=== PATIENT | male | born 1985 | race African-American/Black ===

== ENCOUNTER 2019-02-17 09:28 | Emergency (ER) | payer OTHER, SELFPAY ==
[~2019-02-17] VITALS: Ht 188 cm; Wt 96.8 kg
[2019-02-17 09:29] VITALS: BP 138/67
[2019-02-17] MEDS ORDERED: BACT800T5 PO (10:04)
== END 2019-02-17 10:08 | disposition home or self-care (01) ==
LOC: M ED 09:28
DX: K12.2 Cellulitis and abscess of mouth (principal); F17.200 Nicotine dependence, unspecified, uncomplicated; F12.10 Cannabis abuse, uncomplicated; Z88.0 Allergy status to penicillin

== ENCOUNTER 2019-04-30 02:23 | Emergency (ER) | payer SELFPAY ==
[~2019-04-30] VITALS: Ht 190.5 cm; Wt 95.7 kg
[~2019-04-30 02:23] MED LIST: BACT800T5 PO
[2019-04-30] MEDS ORDERED: METOCLOPRAMIDE INJ 10MG/2ML VIAL (J2765) IV ONE (03:00)
[2019-04-30] MEDS ORDERED: NS 1,000 ML IV ONE (03:00)
[2019-04-30 03:29] LABS: BASO % 0.2 % (0.0-1.0); EOS # 0.1 10^3/uL (0.0-0.5); EOS % 0.9 % (0.0-3.0); HEMATOCRIT 45.4 % (42.0-52.0); HEMOGLOBIN 14.8 g/dl (13.5-17.5); LYMPH # 1.7 10^3/uL (1.5-5.0); LYMPH % 11.5 % (24.0-44.0); MEAN CORPUSCULAR HEMOGLOBIN 31.2 pg (27.0-33.0); MEAN CORPUSCULAR HGB CONC 32.6 g/dl (32.0-36.5); MEAN CORPUSCULAR VOLUME 95.6 fl (80.0-96.0); MONO % 6.6 % (0.0-5.0); NEUTROPHILS # 11.9 10^3/uL (1.5-8.5); NEUTROPHILS % 80.4 % (36.0-66.0); PLATELET COUNT, AUTOMATED 216 10^3/uL (150-450); RED BLOOD COUNT 4.75 10^6/uL (4.30-6.10); WHITE BLOOD COUNT 14.8 10^3/uL (4.0-10.0)
[2019-04-30] MEDS ORDERED: NS 500 ML IV ONE (03:30)
[2019-04-30 03:54] LABS: ALBUMIN 3.7 GM/DL (3.2-5.2); ALT/SGPT 25 U/L (12-78); BILIRUBIN,DIRECT 0.2 MG/DL (0.0-0.2); BILIRUBIN,TOTAL 0.5 MG/DL (0.2-1.0); BLOOD UREA NITROGEN 21 MG/DL (7-18); CALCIUM LEVEL 8.8 MG/DL (8.5-10.1); CARBON DIOXIDE LEVEL 28 MEQ/L (21-32); CHLORIDE LEVEL 103 MEQ/L (98-107); CREATININE FOR GFR 1.13 MG/DL (0.70-1.30); GLOMERULAR FILTRATION RATE > 60.0 (>60); GLUCOSE, FASTING 95 MG/DL (70-100); LIPASE 67 U/L (73-393); POTASSIUM SERUM 3.7 MEQ/L (3.5-5.1); SODIUM LEVEL 139 MEQ/L (136-145); TOTAL PROTEIN 7.6 GM/DL (6.4-8.2)
[2019-04-30] MEDS ORDERED: ISOVUE-370 76% 100ML VIAL (Q9967) As Ordered ONE (04:19)
--- NOTE | 2019-04-30 05:45 | REPVR ---
PROCEDURE INFORMATION: Exam: CT Abdomen And Pelvis With Contrast Exam date and time: 04/30/2019 4:40 AM Age: 33 years old Clinical indication: Vomiting; Abdominal pain; Generalized; Additional info: Pain/emesis TECHNIQUE: Imaging protocol: Computed tomography of the abdomen and pelvis with intravenous contrast. Radiation optimization: All CT scans at this facility use at least one of these dose optimization techniques: automated exposure control; mA and/or kV adjustment per patient size (includes targeted exams where dose is matched to clinical indication); or iterative reconstruction. Contrast material: ISOVUE 370; Contrast volume: 100 ml; Contrast route: IV; COMPARISON: No relevant prior studies available. FINDINGS: Liver: Normal. No mass. Gallbladder and bile ducts: No calcified stones. No ductal dilation. Pancreas: Normal. No ductal dilation. Spleen: Normal. No splenomegaly. Adrenals: Normal. No mass. Kidneys and ureters: 1.2 cm right renal cyst. Unremarkable left kidney. No hydronephrosis. Stomach and bowel: Scattered colonic diverticulosis. Mild diffuse colon wall thickening. No pneumatosis. No evidence of obstruction. Appendix: Normal appendix. Intraperitoneal space: No free air. No significant fluid collection. Vasculature: No abdominal aortic aneurysm. Lymph nodes: Multiple prominent mesenteric lymph nodes. No pathologically enlarged lymph nodes. Bladder: Unremarkable. Reproductive: Unremarkable. Bones/joints: Unremarkable. No acute fracture. Soft tissues: Unremarkable. IMPRESSION: 1. Diffuse colon wall thickening consistent with colitis. 2. Reactive mesenteric lymph nodes. Electronically signed by: Jorge Alberto Keith On 04/30/2019 05:44:46 AM
[2019-04-30] MEDS ORDERED: REGL10TA6 PO (05:49)
[2019-04-30] MEDS ORDERED: MORPHINE 4 MG/ML 1ML VIAL/SYRINGE (J2270) IV ONE (06:00)
[2019-04-30 07:22] VITALS: BP 141/67
== END 2019-04-30 07:35 | disposition home or self-care (01) ==
LOC: M ED 02:23
DX: K52.9 Noninfective gastroenteritis and colitis, unspecified (principal); F17.200 Nicotine dependence, unspecified, uncomplicated; Z88.0 Allergy status to penicillin
CPT/HCPCS: 74177; 80048; 80076; 83690; 85025; 96361; 96374; 99284; J2270; J2765; Q9967

== ENCOUNTER 2019-05-10 18:28 | Inpatient (IN) | payer SELFPAY ==
[~2019-05-10] VITALS: Ht 190.5 cm; Wt 95.9 kg
[~2019-05-10 18:28] MED LIST changes: +REGL10TA6 PO
[2019-05-10 19:27] LABS: BASO % 0.3 % (0.0-1.0); EOS # 0.1 10^3/uL (0.0-0.5); EOS % 0.6 % (0.0-3.0); HEMATOCRIT 45.8 % (42.0-52.0); HEMOGLOBIN 14.9 g/dl (13.5-17.5); LYMPH # 1.9 10^3/uL (1.5-5.0); LYMPH % 12.5 % (24.0-44.0); MEAN CORPUSCULAR HEMOGLOBIN 31.4 pg (27.0-33.0); MEAN CORPUSCULAR HGB CONC 32.5 g/dl (32.0-36.5); MEAN CORPUSCULAR VOLUME 96.4 fl (80.0-96.0); MONO # 0.7 10^3/uL (0.0-0.8); MONO % 4.3 % (0.0-5.0); NEUTROPHILS # 12.6 10^3/uL (1.5-8.5); NEUTROPHILS % 81.9 % (36.0-66.0); PLATELET COUNT, AUTOMATED 240 10^3/uL (150-450); RED BLOOD COUNT 4.75 10^6/uL (4.30-6.10); WHITE BLOOD COUNT 15.4 10^3/uL (4.0-10.0)
[2019-05-10 19:59] LABS: ALBUMIN 3.7 GM/DL (3.2-5.2); BILIRUBIN,DIRECT 0.2 MG/DL (0.0-0.2); BILIRUBIN,TOTAL 0.9 MG/DL (0.2-1.0); TOTAL PROTEIN 7.7 GM/DL (6.4-8.2)
[2019-05-10] MEDS ORDERED: NS 1,000 ML IV ONE ×2 (21:15→22:30)
[2019-05-10] MEDS ORDERED: KETOROLAC 30 MG/ML VIAL (J1885) IV ONE (21:15)
[2019-05-10] MEDS ORDERED: ONDANSETRON 4MG/2ML VIAL (J2405) IV ONE (21:15)
[2019-05-10 22:48] LABS: AMORPHOUS SEDIMENT SMALL (NEGATIVE); APPEARANCE, URINE CLOUDY (CLEAR); BACTERIA, URINE AUTO NEGATIVE (NEGATIVE); BILIRUBIN, URINE AUTO NEGATIVE (NEGATIVE); BLOOD, URINE BLOOD NEGATIVE (NEGATIVE); COLOR, URINE YELLOW (YELLOW); GLUCOSE, URINE (UA) AUTO NEGATIVE (NEGATIVE); KETONE, URINE AUTO 1+ mg/dL (NEGATIVE); LEUKOCYTE ESTERASE, URINE AUTO NEGATIVE (NEGATIVE); MUCUS, URINE SMALL (NEGATIVE); NITRITE, URINE AUTO NEGATIVE (NEGATIVE); PROTEIN, URINE AUTO 1+ mg/dL (NEGATIVE); RBC, URINE AUTO 41 /HPF (0-3); SPECIFIC GRAVITY URINE AUTO 1.025 (1.002-1.035); SQUAMOUS EPITHELIAL CELL UR AU 0 /HPF (0-6); WBC, URINE AUTO 1 /HPF (0-3)
--- NOTE | 2019-05-10 23:58 | REPVR ---
PROCEDURE INFORMATION: Exam: CT Abdomen And Pelvis Without Contrast Exam date and time: 05/10/2019 11:06 PM Age: 33 years old Clinical indication: Abdominal pain; Flank; Left; Additional info: Lt flank pain, rbc in ua, wbc 15.4 TECHNIQUE: Imaging protocol: Computed tomography of the abdomen and pelvis without contrast. Radiation optimization: All CT scans at this facility use at least one of these dose optimization techniques: automated exposure control; mA and/or kV adjustment per patient size (includes targeted exams where dose is matched to clinical indication); or iterative reconstruction. COMPARISON: CT ABD/PEL W/IV CONTRAST ONLY 04/30/2019 4:38 AM FINDINGS: Lungs: Minimal left lower lobe linear atelectasis or scar. Liver: Normal. No mass. Gallbladder and bile ducts: Normal. No calcified stones. No ductal dilation. Pancreas: Normal. No ductal dilation. Spleen: Normal. No splenomegaly. Adrenals: Normal. No mass. Kidneys and ureters: Probable right renal cyst measuring 10 mm. Stomach and bowel: Borderline distention of the stomach with food material. There are a few colonic diverticula without diverticulitis. Much of the colon is collapsed. There is question of slight diffuse colonic wall thickening with some pericolonic induration. Appendix: A normal appendix is seen. Intraperitoneal space: Unremarkable. No free air. No significant fluid collection. Vasculature: Multiple phleboliths are noted in the pelvis which are similar to the prior study of 04/30/2019. Lymph nodes: Unremarkable. No enlarged lymph nodes. Bladder: Unremarkable as visualized. Reproductive: Unremarkable as visualized. Bones/joints: Unremarkable. No acute fracture. Soft tissues: Unremarkable. IMPRESSION: 1. There is borderline gastric distention with food material which is slightly increased from 04/30/2019 and may reflect recent ingestion. Gastric atony or relative outlet obstruction are not excluded. 2. Question of minimal nonspecific pancolitis which is similar to the prior study. 3. No renal or ureteral calculi are evident and there is no evidence of obstructive uropathy. Electronically signed by: Jose Martinez On 05/10/2019 23:57:45 PM
[2019-05-11] MEDS ORDERED: METOCLOPRAMIDE INJ 10MG/2ML VIAL (J2765) IV ONE (00:15)
[2019-05-11] MEDS ORDERED: ONDANSETRON 4MG/2ML VIAL (J2405) IV PRN (00:30)
[2019-05-11] MEDS ORDERED: ACETAMINOPHEN TAB 650MG DOSE (2X325MG) PO PRN (00:30)
[2019-05-11] MEDS ORDERED: KETOROLAC 30 MG/ML VIAL (J1885) IV PRN (00:30)
[2019-05-11] MEDS ORDERED: METO10TA2 PO (00:44)
[2019-05-11] MEDS ORDERED: DOCUSATE SODIUM 100 MG CAP PO ONE (01:00)
--- NOTE | 2019-05-11 01:43 | HPEPDOC ---
General Date of Admission May 11, 2019 at 00:28 Date of Service: May 11, 2019 Attending Physician: TIERNEY TREVINO MD Chief Complaint The patient is a 33-year-old male admitted with a reason for visit of Flank Pain. Source: Patient Exam Limitations: No limitations Timing/Duration: Day(s) (2d of left back pain) Severity: Severe Associated Symptoms: Nausea History of Present Illness 33 yo man with remote history of PSUD c/b CVA i/s/o crack cocaine with minimal RUE and slight right facial deficits, remote alcohol use, who was recently seen in the ED for abdominal pain and diarrhea on 04/30/[address] showed nonspecific pancolitis who now returns to the ED with new severe left flank pain of 2 days duration and was most severe today prompting his presentation, while reporting resolution of his recent diarrhea. He denies a history of prior renal calculi, recent dysuria, fever, chills, gricelda hematuria. In the ED, he arrived in moderate distress with hypertension to 197/89 that improved after some toradol. He was otherwise afebrile, HR 61, RR 18 and breathing comfortably on room air. He denied abdominal pain at this time, reported poor PO with nausea without emesis and 10/10 left back pain. While in the ED he was given 2L NS, toradol 30mg IV x 1, zofran 4mg IV x1 and reglan 10mg IV x1. Initial work up included a CT A/P that showed gastric distention, minimal pancolitis and no evidence of renal calculi, lipase and LFTs that were normal wi th a leukocytosis to 15.44, Hgb 14.9, Hct 45.8 and platelets of 240. He also had a UA that had 41 RBCs but otherwise without WBCs or bacteria. Given his classic acute left flank pain and blood found in sterile urine, it is likely that he may have passed a stone. Will admit to medicine for pain management and observation overnight. Home Medications Scheduled PRN Metoclopramide HCl (Metoclopramide HCl) 10 Mg Tablet, 10 MG PO Q6H PRN for NAUSEA, (Reported) Allergies Coded Allergies: Penicillins (Verified Allergy, Severe, FACIAL SWELLING, 02/17/19) Past Medical History Medical History Remote history of PSUD c/b CVA i/s/o crack cocaine with minimal RUE and slight right facial deficits, remote alcohol use, recent history of enterocolitis. Surgical History None Family History Significant Family History: No pertinent family hx Social History * Smoker: current smoker Alcohol: occationally (last consumption was in 12/2018 around his birthday. has a remote history of withdrawal) Drugs: denies Recent Travel/Sick Contacts: Denies: Recent travel, Recent sick contacts Psychosocial History: No pertinent psych hx A-FIB/CHADSVASC A-FIB History Current/History of A-Fib/PAF?: No Current PO Anticoag Therapy: No Age/Risk Factor Scoring CHADSVASC: CHADSVASC Response (Comments) Value Age Risk Factor Age < 65 years old 0 Gender Risk Factor Male 0 Hx of CHF No 0 Hx of HTN No 0 Hx of Stroke/TIA/or VTE No 0 Hx of Diabetes No 0 Hx of Vascular Disease No 0 Total 0 Treatment Treatment ordered: NONE Reason Anticoagulant not given: Not indicated/[id number] Review of Systems Constitutional: Denies: Chills, Fever, Night Sweats Eyes: Denies: Pain, Vision change ENT: Denies: Head Aches, Ear Pain, Dysphagia Skin: Denies: Rash, Lesions, Breakdown Pulmonary: Denies: Dyspnea, Cough Cardiovascular: Denies: Chest Pain, Palpitations, Orthopnea, Paroxysmal Noc. Dyspnea, Lt Headedness Gastrointestinal: Reports: Other Symptoms (left flank pain); Denies: Abdominal Pain, Diarrhea, Constipation, Melena, Hematochezia Genitourinary: Denies: Dysuria, Frequency, Incontinence, Hematuria (no noted gricelda hematuria), Retention Hematologic: Denies: Bruising, Bleeding Excessively Endocrine: Denies: Polydipsia, Polyphagia, Polyuria, Heat Intolerance, Cold Intolerance, Other Endocrine Sx Musculoskeletal: Reports: Back Pain (Left back pain) Neurological: Denies: Weakness, Numbness, Change in speech, Confusion Psych: Reports: Mood Normal; Denies: Depression, Memory Issues Physical Examination General Exam: Positive: Alert, No Acute Distress Eye Exam: Positive: PERRLA, Conjunctiva & lids normal, EOMI; Negative: Sclera icteric ENT Exam: Positive: Atraumatic, Mucous membr. moist/pink, Pharynx Normal Neck Exam: Positive: Supple; Negative: JVD, thyromegaly Chest Exam: Positive: Clear to auscultation, Normal air movement Heart Exam: Positive: Rate Normal, Regular Rhythm, Normal S1, Normal S2; Negative: Murmurs, Rubs Telemetry: Positive: No significant arrhythmia Abdomen Exam: Positive: Normal bowel sounds, Soft, Other (exquisite left flank pain, unremarkable abdominal examination); Negative: Tenderness, Hepatospenomegaly Extremity Exam: Positive: Normal pulses; Negative: Clubbing, Cyanosis, Edema Skin Exam: Positive: Nl turgor and temperature, Other skin issue (has multiple tattoos on upper chest and upper back); Negative: Breakdown, Lesion Neuro Exam: Positive: Normal Gait, Normal Speech, Strength at 5/5 X4 ext, Reflexes 2+; Negative: Cranial Nerves 3-12 NL (very slight R lid lag and facial droop on right side per his reported baseline. Also unable to full extent R arm.) Psych Exam: Positive: Mental status NL, Mood NL, Oriented x 3 Vital Signs Vital Signs Date Time Temp Pulse Resp B/P (MAP) Pulse Ox O2 Delivery O2 Flow Rate FiO2 05/11/19 00:42 98.4 65 15 164/78 (106) 98 Room Air Laboratory Data Labs 24H Laboratory Tests 2 05/10/19 19:06: Immature Granulocyte % (Auto) 0.4, Neutrophils (%) (Auto) 81.9H, Lymphocytes (%) (Auto) 12.5L, Monocytes (%) (Auto) 4.3, Eosinophils (%) (Auto) 0.6, Basophils (%) (Auto) 0.3, Neutrophils # (Auto) 12.6H, Lymphocytes # (Auto) 1.9, Monocytes # (Auto) 0.7, Eosinophils # (Auto) 0.1, Basophils # (Auto) 0.0, Nucleated Red Blood Cells % (auto) 0.0, Total Bilirubin 0.9, Direct Bilirubin 0.2, Aspartate Amino Transf (AST/SGOT) 20, Alanine Aminotransferase (ALT/SGPT) 25, Alkaline Phosphatase 69, Total Protein 7.7, Albumin 3.7, Albumin/Globulin Ratio 0.93L, Lipase 170 05/10/19 22:26: Urine Color YELLOW, Urine Appearance CLOUDYH, Urine pH 8.0, Urine Specific [place] 1.025, Urine Protein 1+H, Urine Glucose (Auto)(UA) NEGATIVE, Urine K etones (Auto) 1+H, Urine Blood NEGATIVE, Urine Nitrite NEGATIVE, Urine Bilirubin NEGATIVE, Urine Urobilinogen 2.0H, Urine Leukocyte Esterase (Auto) NEGATIVE, Urine WBC (Auto) 1, Urine RBC (Auto) 41H, Urine Hyaline Casts (Auto) 0, Urine Bacteria (Auto) NEGATIVE, Urine Squamous Epithelial Cells 0, Urine Amorphous Sediment (Auto) SMALLH, Urine Mucus (Auto) SMALL, Urine Sperm (Auto) CBC/BMP Laboratory Tests 05/10/19 19:06 Assessment/Plan 33 yo man with remote history of PSUD c/b CVA i/s/o crack cocaine with minimal RUE and slight right facial deficits, remote alcohol use, who was recently seen in the ED for abdominal pain and diarrhea on 04/30/[address] showed nonspecific pancolitis who now returned to the ED with new severe left flank pain of 2 days duration, while reporting resolution of his recent diarrhea with work up most notable for sterile hematuria c/f passed stone. L flank pain: likely passed left renal stone given acute severe pain, sterile hematuria and no stone seen on imaging, with stable to improved colitis and gastric distention. -Ketoralac 30IV Q6H PRN for severe pain -ondansetron 4mg IV Q6H PRN for nausea -recheck UA as it reported 41 RBCs and no blood? with cloudy urine -hemodynamically stable, afebrile, without evidence of an underlying infection at this time, will monitor -s/p 2L NS -stat BMP, did not assess renal function in the ED labs Hypertension: Appears to be related to pain as it improved with improvement in pain management -monitor for now -if persistent after pain is well managed, will need to be started on an antihypertensive agent Smoking: -reports recent cut back, declined nicotine patch Prior PSUD: -No alcohol his 12/2018 and no crack cocaine since he had the CVA DVT ppx: lovenox 40 QD Diet: regular Dispo: Medsurg obs Plan / VTE VTE Prophylaxis Ordered?: Yes TIERNEY TREVINO MD May 11, 2019 01:43
[2019-05-11 02:09] LABS: BLOOD UREA NITROGEN 12 MG/DL (7-18); CALCIUM LEVEL 8.3 MG/DL (8.5-10.1); CARBON DIOXIDE LEVEL 25 MEQ/L (21-32); CHLORIDE LEVEL 107 MEQ/L (98-107); CREATININE FOR GFR 0.96 MG/DL (0.70-1.30); GLOMERULAR FILTRATION RATE > 60.0 (>60); GLUCOSE, FASTING 142 MG/DL (70-100); POTASSIUM SERUM 4.3 MEQ/L (3.5-5.1); SODIUM LEVEL 138 MEQ/L (136-145)
--- NOTE | 2019-05-11 05:48 | ECGEPIP ---
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
[2019-05-11] MEDS ORDERED: ENOXAPARIN 40 MG/0.4 ML SYRINGE (J1650) SC SCH (09:00)
[2019-05-11] MEDS ORDERED: DOCUSATE SODIUM 100 MG CAP PO SCH (09:00)
[2019-05-11] MEDS ORDERED: CIPR-249 PO (11:57)
[2019-05-11] MEDS ORDERED: KETO10TAB PO (11:57)
[2019-05-11 13:23] VITALS: BP 146/73
--- NOTE | 2019-05-11 15:37 | DS.PDOC ---
Discharge Summary General Date of Admission May 11, 2019 at 00:28 Date of Discharge 05/11/19 Discharge Summary PROCEDURES PERFORMED DURING STAY: None. ADMITTING DIAGNOSES: 1. Left ankle pain, history of CVA. DISCHARGE DIAGNOSES: 1. Left flank pain, history of CVA, hypertension. COMPLICATIONS/CHIEF COMPLAINT: Flank Pain. HISTORY OF PRESENT ILLNESS: 33 yo man with remote history of PSUD c/b CVA i/s/o crack cocaine with minimal RUE and slight right facial deficits, remote alcohol use, who was recently seen in the ED for abdominal pain and diarrhea on 04/30/[address] showed nonspecific pancolitis who now returns to the ED with new severe left flank pain of 2 days duration and was most severe today prompting his presentation, while reporting resolution of his recent diarrhea. He denies a history of prior renal calculi, recent dysuria, fever, chills, gricelda hematuria. In the ED, he arrived in moderate distress with hypertension to 197/89 that improved after some toradol. He was otherwise afebrile, HR 61, RR 18 and breathing comfortably on room air. He denied abdominal pain at this time, repo rted poor PO with nausea without emesis and 10/10 left back pain. While in the ED he was given 2L NS, toradol 30mg IV x 1, zofran 4mg IV x1 and reglan 10mg IV x1. Initial work up included a CT A/P that showed gastric distention, minimal pancolitis and no evidence of renal calculi, lipase and LFTs that were normal with a leukocytosis to 15.44, Hgb 14.9, Hct 45.8 and platelets of 240. He also had a UA that had 41 RBCs but otherwise without WBCs or bacteria. Given his classic acute left flank pain and blood found in sterile urine, it is likely that he may have passed a stone. Will admit to medicine for pain management and observation overnight.. HOSPITAL COURSE: Patient was admitted to medical floor for observation. Once his pain was treated with Toradol. His blood pressure also subsided which was most likely secondary to pain. CAT scan of the abdomen and pelvis did not show any acute urinary obstruction or stone most likely pass the stone. Patient is clinically stable. His pain has subsided and he'll be discharged home on by mouth Toradol and by mouth ciprofloxacin. Patient has been advised to follow with his PCP in one week. Patient also was advised to come back to emergency room if the symptoms recur or get worse or he becomes febrile.. DISCHARGE MEDICATIONS: Please see below. ALLERGIES: Please see below. PHYSICAL EXAMINATION ON DISCHARGE: VITAL SIGNS: Please see below. GENERAL: Within normal limits HEENT: PERRLA, extra ocular muscles intact NECK: Supple CARDIOVASCULAR EXAMINATION: S1, S2, regular RESPIRATORY EXAMINATION: Clear to A&P ABDOMINAL EXAMINATION: , Soft, nontender, bowel sounds present EXTREMITIES: No clubbing, cyanosis, edema SKIN: Normal NEUROLOGICAL EXAMINATION: . No focal motor sensory deficit PSYCHIATRIC EXAMINATION: Normal LABORATORY DATA: Please see below. IMAGING: CT of abdomen and pelvis:IMPRESSION: 1. There is borderline gastric distention with food material which is slightly increased from 04/30/2019 and may reflect recent ingestion. Gastric atony or relative outlet obstruction are not excluded. 2. Question of minimal nonspecific pancolitis which is similar to the prior study. 3. No renal or ureteral calculi are evident and there is no evidence of obstructive uropathy. PROGNOSIS: Good ACTIVITY: As tolerated. DIET: As tolerated DISCHARGE PLAN: Follow with PCP in one week DISPOSITION: Home, Self-Care. DISCHARGE INSTRUCTIONS: 1. As per discharge instructions. ITEMS TO FOLLOWUP ON ON OUTPATIENT: 1. Follow with PCP in one week. DISCHARGE CONDITION: Stable. TIME SPENT ON DISCHARGE: 22 minutes. Vital Signs/I&Os Vital Signs Date Time Temp Pulse Resp B/P (MAP) Pulse Ox O2 Delivery O2 Flow Rate FiO2 05/11/19 13:23 98.2 75 20 146/73 (97) 100 Room Air I&O- Last 24 Hours up to 6 AM 05/11/19 06:00 Intake Total 2000 ml Balance 2000 ml Laboratory Data Labs 24H Laboratory Tests 2 05/10/19 19:06: Immature Granulocyte % (Auto) 0.4, Neutrophils (%) (Auto) 81.9H, Lymphocytes (%) (Auto) 12.5L, Monocytes (%) (Auto) 4.3, Eosinophils (%) (Auto) 0.6, Basophils (%) (Auto) 0.3, Neutrophils # (Auto) 12.6H, Lymphocytes # (Auto) 1.9, Monocytes # (Auto) 0.7, Eosinophils # (Auto) 0.1, Basophils # (Auto) 0.0, Nucleated Red Blood Cells % (auto) 0.0, Total Bilirubin 0.9, Direct Bilirubin 0.2, Aspartate Amino Transf (AST/SGOT) 20, Alanine Aminotransferase (ALT/SGPT) 25, Alkaline Phosphatase 69, Total Protein 7.7, Albumin 3.7, Albumin/Globulin Ratio 0.93L, Lipase 170 05/10/19 19:16: POC Glucose (Misc Panel) 85, POC Sodium (Misc Panel) 141, POC Potassium (Misc Panel) 4.3, POC Chloride (Misc Panel) 101, POC Total CO2 (Misc Panel) 30.0H, POC Blood Urea Nitrogen (Misc Panel 13, POC Ionized Calcium (Misc Panel) 4.7, POC Creatinine (Misc Panel) 0.9, POC Hematocrit (Misc Panel) 46.0 05/10/19 22:26: Urine Color YELLOW, Urine Appearance CLOUDYH, Urine pH 8.0, Urine Specific [place] 1.025, Urine Protein 1+H, Urine Glucose (Auto)(UA) NEGATIVE, Urine Ketones (Auto) 1+H, Urine Blood NEGATIVE, Urine Nitrite NEGATIVE, Urine Bilirubin NEGATIVE, Urine Urobilinogen 2.0H, Urine Leukocyte Esterase (Auto) NEGATIVE, Urine WBC (Auto) 1, Urine RBC (Auto) 41H, Urine Hyaline Casts (Auto) 0, Urine Bacteria (Auto) NEGATIVE, Urine Squamous Epithelial Cells 0, Urine Amorphous Sediment (Auto) SMALLH, Urine Mucus (Auto) SMALL, Urine Sperm (Auto) 05/11/19 01:32: Anion Gap 6L, Glomerular Filtration Rate > 60.0, Calcium Level 8.3L CBC/BMP Laboratory Tests 05/10/19 19:06 05/11/19 01:32 Discharge Medications Scheduled Ciprofloxacin HCl (Cipro) 500 Mg Tablet, 500 MG PO BID Scheduled PRN Ketorolac Tromethamine (Ketorolac Tromethamine) 10 Mg Tablet, 10 MG PO Q6HP PRN for pain Metoclopramide HCl (Metoclopramide HCl) 10 Mg Tablet, 10 MG PO Q6H PRN for NAUSEA, (Reported) Allergies Coded Allergies: Penicillins (Verified Allergy, Severe, FACIAL SWELLING, 02/17/19) LALIT PEREZ MD May 11, 2019 15:37
== END 2019-05-11 13:30 | disposition home or self-care (01) | DRG 251 ==
LOC: M ED 18:28 → M ED INP 05-11 00:28
PROVIDERS: ADMIT Internal Medicine; ATTEND Internal Medicine
DX: R10.9 Unspecified abdominal pain (principal); I69.351 Hemiplegia and hemiparesis following cerebral infarction affecting right dominant side; I10 Essential (primary) hypertension; F19.21 Other psychoactive substance dependence, in remission; F10.21 Alcohol dependence, in remission; F17.210 Nicotine dependence, cigarettes, uncomplicated; R31.9 Hematuria, unspecified

== ENCOUNTER 2019-05-26 07:50 | Emergency (ER) | payer MEDICAID, SELFPAY ==
[~2019-05-26] VITALS: Ht 188 cm; Wt 98.2 kg
[~2019-05-26 07:50] MED LIST changes: +CIPR-249 PO; +KETO10TAB PO; +METO10TA2 PO
[2019-05-26 09:10] LABS: BASO % 0.4 % (0.0-1.0); EOS # 0.2 10^3/uL (0.0-0.5); EOS % 3.2 % (0.0-3.0); HEMATOCRIT 41.2 % (42.0-52.0); HEMOGLOBIN 13.5 g/dl (13.5-17.5); LYMPH # 2.1 10^3/uL (1.5-5.0); LYMPH % 27.6 % (24.0-44.0); MEAN CORPUSCULAR HEMOGLOBIN 31.7 pg (27.0-33.0); MEAN CORPUSCULAR HGB CONC 32.8 g/dl (32.0-36.5); MEAN CORPUSCULAR VOLUME 96.7 fl (80.0-96.0); MONO # 0.6 10^3/uL (0.0-0.8); MONO % 7.8 % (0.0-5.0); NEUTROPHILS # 4.6 10^3/uL (1.5-8.5); NEUTROPHILS % 60.6 % (36.0-66.0); PLATELET COUNT, AUTOMATED 193 10^3/uL (150-450); RED BLOOD COUNT 4.26 10^6/uL (4.30-6.10); WHITE BLOOD COUNT 7.6 10^3/uL (4.0-10.0)
[2019-05-26] MEDS ORDERED: KETOROLAC 60 MG/2 ML VIAL (J1885) IM ONE (09:15)
[2019-05-26 09:30] LABS: ERYTHROCYTE SEDIMENTATION RATE 4 mm/hr (0-15)
[2019-05-26 10:01] LABS: AMPHETAMINES LEVEL URINE NEGATIVE (NEGATIVE); BARBITURATES URINE NEGATIVE (NEGATIVE); BENZODIAZEPINES URINE NEGATIVE (NEGATIVE); CANNABINOIDS URINE POSITIVE (NEGATIVE); COCAINE METABOLITE URINE NEGATIVE (NEGATIVE); METHADONE URINE NEGATIVE (NEGATIVE); OPIATES URINE NEGATIVE (NEGATIVE); PHENCYCLIDINE URINE NEGATIVE (NEGATIVE)
[2019-05-26 10:05] VITALS: BP 141/64
== END 2019-05-26 10:13 | disposition home or self-care (01) ==
LOC: M ED 07:50
DX: R31.9 Hematuria, unspecified (principal); M54.6 Pain in thoracic spine; R20.2 Paresthesia of skin; W18.40XA Slipping, tripping and stumbling without falling, unspecified, initial encounter; Y92.099 Unspecified place in other non-institutional residence as the place of occurrence of the external cause; Y93.9 Activity, unspecified; Y99.9 Unspecified external cause status; Z86.73 Personal history of transient ischemic attack (TIA), and cerebral infarction without residual deficits; F10.10 Alcohol abuse, uncomplicated; F11.10 Opioid abuse, uncomplicated; F12.10 Cannabis abuse, uncomplicated; F17.200 Nicotine dependence, unspecified, uncomplicated; Z88.0 Allergy status to penicillin
CPT/HCPCS: 80047; 80307; 81001; 85025; 85652; 86140; 96372; 99283; J1885

== ENCOUNTER → 2019-07-06 | Outpatient (REF) | payer OTHER | LOC: M SFHCPLAZ 12:19 | PROVIDERS: ATTEND Physician Assistant | DX: Z00.00 Encounter for general adult medical examination without abnormal findings (principal); Z13.220 Encounter for screening for lipoid disorders; Z13.29 Encounter for screening for other suspected endocrine disorder; R20.2 Paresthesia of skin; Z53.9 Procedure and treatment not carried out, unspecified reason ==

== ENCOUNTER 2019-08-24 10:06 | Emergency (ER) | payer OTHER ==
[~2019-08-24] VITALS: Ht 190.5 cm; Wt 100.0 kg
[2019-08-24] MEDS ORDERED: METH4PACK (10:15)
[2019-08-24] MEDS ORDERED: GABA-843 (10:15)
[2019-08-24] MEDS ORDERED: ONDANSETRON 4MG/2ML VIAL As Ordered ONE (10:34)
[2019-08-24] MEDS ORDERED: NS 1,000 ML IV ONE (10:45)
[2019-08-24] MEDS ORDERED: ONDANSETRON 4MG/2ML VIAL IV ONE (10:45)
[2019-08-24 11:00] LABS: BASO % 0.3 % (0.0-1.0); EOS # 0.2 10^3/uL (0.0-0.5); EOS % 1.1 % (0.0-3.0); HEMATOCRIT 46.5 % (42.0-52.0); HEMOGLOBIN 16.1 g/dl (13.5-17.5); LYMPH # 2.4 10^3/uL (1.5-5.0); LYMPH % 16.9 % (24.0-44.0); MEAN CORPUSCULAR HEMOGLOBIN 32.1 pg (27.0-33.0); MEAN CORPUSCULAR HGB CONC 34.6 g/dl (32.0-36.5); MEAN CORPUSCULAR VOLUME 92.6 fl (80.0-96.0); MONO # 0.6 10^3/uL (0.0-0.8); MONO % 4.3 % (0.0-5.0); NEUTROPHILS # 11.1 10^3/uL (1.5-8.5); PLATELET COUNT, AUTOMATED 253 10^3/uL (150-450); RED BLOOD COUNT 5.02 10^6/uL (4.30-6.10); WHITE BLOOD COUNT 14.4 10^3/uL (4.0-10.0)
[2019-08-24] MEDS ORDERED: METOCLOPRAMIDE INJ 10MG/2ML VIAL (J2765 PER 1) IV ONE (11:15)
[2019-08-24 11:30] LABS: ALBUMIN 3.8 GM/DL (3.2-5.2); ALT/SGPT 27 U/L (12-78); BILIRUBIN,TOTAL 0.6 MG/DL (0.2-1.0); BLOOD UREA NITROGEN 14 MG/DL (7-18); CALCIUM LEVEL 9.2 MG/DL (8.5-10.1); CARBON DIOXIDE LEVEL 27 MEQ/L (21-32); CHLORIDE LEVEL 108 MEQ/L (98-107); CK-MB VALUE MASS 1.6 NG/ML (<3.6); CPK CREATINE PHOSPHOKINASE 215 U/L (39-308); CREATININE FOR GFR 1.12 MG/DL (0.70-1.30); ETHYL ALCOHOL (ETHANOL) < 0.003 % (0.000-0.010); GLOMERULAR FILTRATION RATE > 60.0 (>60); GLUCOSE, FASTING 94 MG/DL (70-100); MB/CK RELATIVE INDEX 0.74 (< OR =4); NT-PRO BNP 27 PG/ML (<125); POTASSIUM SERUM 3.9 MEQ/L (3.5-5.1); SODIUM LEVEL 143 MEQ/L (136-145); TOTAL PROTEIN 8.1 GM/DL (6.4-8.2); TROPONIN I < 0.02 NG/ML (< 0.10)
--- NOTE | 2019-08-24 11:32 | REP ---
CT BRAIN WITHOUT CONTRAST: HISTORY: Drooping mouth. History of previous stroke. Comparison CT study November 01, 2011. 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 Bony calvarium is intact. Visualized paranasal sinuses are clear. No intraorbital abnormality is appreciated. On soft tissue window settings, there is a fairly prominent cavum vergae again noted. This is unchanged and a normal variant. Lpoez/white differentiation pattern is intact. There is no visible infarct, hemorrhage, mass, extra-axial fluid collection, or midline shift. IMPRESSION: Persistent cavum vergae again noted as a normal variant. Otherwise negative noncontrast head CT. Electronically Signed by Dami Allison MD 08/24/2019 11:55 A
--- NOTE | 2019-08-24 11:37 | REP ---
LEFT RIB SERIES: Four views of the left ribs performed. No fracture or bone lesion is seen. An accompanying view of the chest demonstrates no acute infiltrate. The lungs are clear. The heart and mediastinum are within normal limits. IMPRESSION: Negative left rib series. Electronically Signed by Danny Lopez MD 08/24/2019 12:55 P
[2019-08-24] MEDS ORDERED: ISOVUE-370 76% 100ML VIAL As Ordered ONE (11:42)
[2019-08-24] MEDS ORDERED: KETOROLAC 30 MG/ML 1ML VIAL IV ONE ×2 (11:45)
--- NOTE | 2019-08-24 12:39 | REP ---
CT ANGIOGRAM CHEST: TECHNIQUE: Axial contrast enhanced images from the thoracic inlet to the upper abdomen using 100 mL Isovue-370 intravenous contrast material with multiplanar reformations. There is no CT evidence of pulmonary embolism. There is no thoracic aortic aneurysm or dissection. The heart is normal in size. There is no mediastinal, terry or chest wall lymphadenopathy. There is no pleural or pericardial effusion. No infiltrate is seen in either lung. There is no pneumothorax. The visualized osseous structures are unremarkable. IMPRESSION: Negative CT angiogram of the chest. Electronically Signed by Danny Lopez MD 08/24/2019 12:57 P
--- NOTE | 2019-08-24 12:48 | REP ---
CT ABDOMEN AND PELVIS WITH IV CONTRAST: TECHNIQUE: Axial contrast enhanced images from the lung bases to the pubic symphysis using 100 mL Isovue-370 intravenous contrast material with multiplanar reformations. Liver, spleen, adrenals and pancreas are unremarkable. There is a cyst of the right kidney measuring 1.2 cm in diameter. There is no hydronephrosis bilaterally. There is no abdominal aortic aneurysm. There is no adenopathy. There is no free air or free fluid. I seen on bowel wall thickening. The appendix is normal. No pelvic mass is seen. Urinary bladder is mildly distended and grossly unremarkable. IMPRESSION: No acute abnormality is detected. Electronically Signed by Danny Lopez MD 08/24/2019 12:57 P
[2019-08-24 13:01] LABS: AMPHETAMINES LEVEL URINE NEGATIVE (NEGATIVE); BARBITURATES URINE NEGATIVE (NEGATIVE); BENZODIAZEPINES URINE NEGATIVE (NEGATIVE); CANNABINOIDS URINE POSITIVE (NEGATIVE); COCAINE METABOLITE URINE NEGATIVE (NEGATIVE); METHADONE URINE NEGATIVE (NEGATIVE); OPIATES URINE NEGATIVE (NEGATIVE); PHENCYCLIDINE URINE NEGATIVE (NEGATIVE)
[2019-08-24] MEDS ORDERED: HALOPERIDOL 5MG/ML VIAL (J1630 PER 1) IV ONE (15:15)
[2019-08-24 15:24] LABS: CK-MB VALUE MASS 1.8 NG/ML (<3.6); CPK CREATINE PHOSPHOKINASE 206 U/L (39-308); MB/CK RELATIVE INDEX 0.87 (< OR =4); TROPONIN I < 0.02 NG/ML (< 0.10)
[2019-08-24 15:30] VITALS: BP 151/81
--- NOTE | 2019-08-24 22:06 | ECGEPIP ---
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
== END 2019-08-24 15:58 | disposition home or self-care (01) ==
LOC: M ED 10:06
DX: R11.15 Cyclical vomiting syndrome unrelated to migraine (principal); R10.9 Unspecified abdominal pain; R00.0 Tachycardia, unspecified; M54.9 Dorsalgia, unspecified; I69.392 Facial weakness following cerebral infarction; F17.210 Nicotine dependence, cigarettes, uncomplicated; Z88.0 Allergy status to penicillin; Z79.899 Other long term (current) drug therapy
CPT/HCPCS: 70450; 71101; 71275; 74177; 80053; 80307; 81001; 82550; 82553; 83605; 83880; 85025; 93005; 93041; 94760; 96374; 96375; 99285; G0480; J1630; J1885; J2405; J2765; Q9967

== ENCOUNTER → 2019-09-24 | Outpatient (REF) | payer OTHER ==
[~2019-09-24] MED LIST changes: +GABA-843; +METH4PACK
[2019-09-24 15:57] LABS: CHLAMYDIA DNA AMPLIFICATION NEGATIVE (NEGATIVE); GC DNA AMPLIFICATION POSITIVE (NEGATIVE)
== END ==
LOC: M LAB REF 14:14
PROVIDERS: ATTEND Physician Assistant Medical
DX: Z11.3 Encounter for screening for infections with a predominantly sexual mode of transmission (principal)

== ENCOUNTER → 2020-11-05 | Outpatient (CLI) | payer OTHER ==
[~2020-11-05] MED LIST changes: +GABA-282; -GABA-843
[2020-11-05 14:23] LABS: ALBUMIN 3.7 GM/DL (3.2-5.2); ALT/SGPT 53 U/L (12-78); BILIRUBIN,TOTAL 0.7 MG/DL (0.2-1.0); BLOOD UREA NITROGEN 20 MG/DL (7-18); CALCIUM LEVEL 9.3 MG/DL (8.5-10.1); CARBON DIOXIDE LEVEL 29 MEQ/L (21-32); CHLORIDE LEVEL 108 MEQ/L (98-107); CHOLESTEROL LEVEL 161 MG/DL (<200); CREATININE FOR GFR 0.97 MG/DL (0.70-1.30); FREE T4 1.09 NG/DL (0.76-1.46); GLOMERULAR FILTRATION RATE > 60.0 (>60); GLUCOSE, FASTING 95 MG/DL (70-100); HDL CHOLESTEROL 50 MG/DL (>40); LDL CHOLESTEROL 98 MG/DL (<100); NON-HDL-C 111 MG/DL; POTASSIUM SERUM 4.3 MEQ/L (3.5-5.1); SODIUM LEVEL 141 MEQ/L (136-145); THYROID STIMULATING HORMONE 0.593 uIU/ML (0.358-3.740); TOTAL 25(OH) VITAMIN D 18.5 NG/ML (30.0-100.0); TOTAL PROTEIN 7.7 GM/DL (6.4-8.2); TRIGLYCERIDES LEVEL 63 MG/DL (<150)
== END ==
LOC: M PLALAB 10:49
PROVIDERS: ATTEND Physician Assistant
DX: Z00.00 Encounter for general adult medical examination without abnormal findings (principal); Z13.1 Encounter for screening for diabetes mellitus; Z13.220 Encounter for screening for lipoid disorders

== ENCOUNTER 2021-02-09 15:28 | Emergency (ER) | payer OTHER ==
[~2021-02-09] VITALS: Ht 190.5 cm; Wt 121.5 kg
--- OUTSIDE RECORDS SUMMARY | 2021-02-09 15:34 | CCD ---
Author Author [facility] Organization [facility] Address Unknown Phone Unavailable Care Team Providers Care Technical Specialist Name Role Phone Carisa Francisco Unavailable PROBLEMS Type Condition ICD9-CM Code [id number] Code Onset Dates Condition S tatus W/U Status Risk SNOMED Code Notes Problem Acute midline low back pain with left-sided sciatica M54.42 Active confirmed 752715113 Problem Vitamin D deficiency E55.9 Active confirmed 85296533 Problem Paresthesia of skin R20.2 Active confirmed 25341382 Problem Nicotine dependence, cigarettes, uncomplicated F17 .210 Active confirmed 48751936 ALLERGIES Allergen (clinical drug ingredient) Drug/Non Drug Allergy do cumented on EMR Reaction Allergy Type Onset Date Status penicillin V Penicillin Unknown Drug Allergy Active ENCOUNTERS from 1985 to 2020-12-30 Encounter Location Date Provider Diagnosis [address] [phone] [place] [address] Dec, Carisa Francisco IMMUNIZATIONS No Information SOCIAL HISTORY Tobacco Use: Social History Observation Description Date Details (start date - stop date) Former Smoker Sex Assigned At : Social History Observation Description Sex Assigned At Unknown Education: Question Answer Notes Level of Education: College Audit Question Answer Notes Total Score: 0 Interpretation: Alcohol Education Language: Question Answer Notes Languages spoken: Gabonese Advent: Question Answer Notes Advent No confucianism beliefs that would impact health care. Sexual Hx: Question Answer Notes Had sex in the last 12 months (vaginal, oral, or anal)? Yes Have you ever had an STD? No with Women only Use protection? No Drug and Alcohol Question Answer Notes Total Score: 0 Interpretation: No problems reported Alcohol Screening: Question Answer Notes Did you have a drink containing alcohol in the past year? Ye s Points 2 Interpretation Negative How often did you have six or more drinks on one occas ion in the past year? Never (0 points) How many drinks did you have on a typica l day when you were drinking in the past year? 3 or 4 (1 point) How often did you have a drink containing alcohol in t he past year? Monthly or less (1 point) Tobacco Use: Question Answer Notes Are you a: former smoker Quit February 29, 2020 REASON FOR REFERRAL No Information VITAL SIGNS No information MEDICATIONS Medication SIG (Take, Route, Frequency, Duration) Notes Start Da te End Date Status Clobetasol Propionate 0.05 % 1 application Externally Once a day for 14 day(s) Dec, Active Chantix Starting Month Dylon 0.5 MG X 11 & 1 MG X 42 as directed Orally as directed for 30 Days Jun, Not-Taking Chantix Continuing Month Dylon 1 MG as directed Orally as directed for 30 Days Jun, Not-Taking Clobetasol Propionate 0.05 % 1 application Externally Once a day for 14 day(s) Dec, Active Doxycycline Hyclate 100 MG 1 tablet Orally Twice a day for 5 day (s) Dec, Active Ergocalciferol 1.25 MG (67621 UT) 1 capsule Orally weekly for 30 day(s) Dec, Active tiZANidine HCl 2 MG 1-2 tablets as needed Orally Three times a day for 30 Days Dec, Active PROCEDURES No Information RESULTS No Results REASON FOR VISIT PA clobetasol prop 0.05% shampoo MEDICAL (GENERAL) HISTORY Type Description Date Medical History CVA in 2004, cocaine induced Surgical History No Surgical history information Hospitalization History stroke 2004 Hospitalization History low back pain. kidney stones? Goals Section No Information Health Concerns No Information MEDICAL EQUIPMENT No Information MENTAL STATUS No Information FUNCTIONAL STATUS No Information ASSESSMENTS No Information PLAN OF TREATMENT Medication Medication Name Sig Start Date Stop Date Clobetasol Propionate 0.05 % 1 application Externally Once a day for 14 day(s) Dec, Doxycycline Hyclate 100 MG 1 tablet Orally Twice a day for 5 day(s) Dec, Ergocalciferol 1.25 MG (48936 UT) 1 capsule Orally weekly fo r 30 day(s) Dec, Clobetasol Propionate 0.05 % 1 application Externally Once a day for 14 day(s) Dec, tiZANidine HCl 2 MG 1-2 tablets as needed Orally Three times a day for 30 Days Dec, Insurance Providers Payer Name Payer Address Payer Phone Insured Name Patient Relati onship to Insured Coverage Start Date Coverage End Date [facility] CORPORATE CLAIMS DEPT [address] [facility] [phone] [place] self
--- OUTSIDE RECORDS SUMMARY | 2021-02-09 15:34 | CCD ---
Author Author [facility] Organization [facility] Address Unknown Phone Unavailable Care Team Providers Care Physical Therapist Name Role Phone Carisa Francisco Unavailable PROBLEMS Type Condition ICD9-CM Code [id number] Code Onset Dates Condition S tatus W/U Status Risk SNOMED Code Notes Problem Acute midline low back pain with left-sided sciatica M54.42 Active confirmed [id number] Problem Vitamin D deficiency E55.9 Active confirmed 19538249 Problem Paresthesia of skin R20.2 Active confirmed 40569656 Problem Nicotine dependence, cigarettes, uncomplicated F17 .210 Active confirmed 94126612 ALLERGIES Allergen (clinical drug ingredient) Drug/Non Drug Allergy do cumented on EMR Reaction Allergy Type Onset Date Status penicillin V Penicillin Unknown Drug Allergy Active ENCOUNTERS from 1985 to 2021-01-11 Encounter Location Date Provider Diagnosis [address] [phone] [place] [address] Dec, Carisa Francisco Vitamin D deficiency E55.9 ; Folliculitis barbae L73.8 and Acute midline low back pain with left-sided sciatica M54.42 IMMUNIZATIONS No Information SOCIAL HISTORY Tobacco Use: Social History Observation Description Date Details (start date - stop date) Former Smoker Sex Assigned At : Social History Observation Description Sex Assigned At Unknown Education: Question Answer Notes Level of Education: College Audit Question Answer Notes Total Score: 0 Interpretation: Alcohol Education Language: Question Answer Notes Languages spoken: Malay Quaker: Question Answer Notes Quaker No episcopalian beliefs that would impact health care. Sexual [...] Quit February 29, 2020 REASON FOR REFERRAL from 1985 to 2021-01-11 Reason 34y/o male with midline low back pain with numbness/tingling down right leg, had MRI showed bulging disc Diagnosis 1 Acute midline low back pain with left-sided sciatica (M54.42) Referral Organization [facility] [place] Referring Provider First Name Carisa Referring Provider Last Name Nolan Referring Provider Specialty Family Medicine Referred Provider [facility] ([place]) Referred Provider Specialty Physical Therapist Referral Priority Routine General Notes PolkSilvia 12/19/2020 11:53:05 AM > referral faxed VITAL SIGNS Weight 291.8 lbs Dec, Weight-kg 132.36 kg Dec, Height 75 in Dec, BMI 36.47 kg/m2 Dec, Heart Rate 96 /min Dec, Respiratory Rate 18 /min Dec, Temperature 97.5 degrees Fahrenheit Dec, Oximetry 96 Dec, Blood pressure systolic 116 mm Hg Dec, Blood pressure diastolic 72 mm Hg Dec, MEDICATIONS Medication SIG (Take, Route, Frequency, Duration) [...] day (s) Dec, Active Ergocalciferol 1.25 MG (37099 UT) 1 capsule Orally weekly for 30 day(s) Dec, Active tiZANidine HCl 2 MG 1-2 tablets as needed Orally Three times a day for 30 Days Dec, Active PROCEDURES No Information RESULTS No Results REASON FOR VISIT follow up MEDICAL (GENERAL) HISTORY Type Description Date Medical History CVA in 2004, cocaine induced Surgical History No Surgical history information Hospitalization History stroke 2004 Hospitalization History low back pain. kidney stones? Goals Section No Information Health Concerns No Information MEDICAL EQUIPMENT No Information MENTAL STATUS No Information FUNCTIONAL STATUS No Information ASSESSMENTS Encounter Date Diagnosis Assessment Notes Treatment Notes Treatm ent Clinical Notes Dec, Vitamin D deficiency (ICD-10 - E55.9) weekly vitamin D supplements sent for patient to start Dec, Folliculitis barbae (ICD-10 - L73.8) oral antibiotics and a steroid shampoo sent for patient to use if his symptoms persist will consider a referral to a blocker heated metal forms Dec, Acute midline low back pain with left-sided sciatica (ICD-10 - M54.42) tizanidine sent for patient to start and a referral was placed for patient to start physical therapy again Dec, Other Total time spen t with the patient on the day of the encounter: 20 minutes PLAN OF TREATMENT Medication Medication Name Sig Start Date Stop Date Clobetasol Propionate 0.05 % 1 application Externally Once a day for 14 day(s) Dec, Doxycycline Hyclate 100 MG 1 tablet Orally Twice a day for 5 day(s) Dec, Ergocalciferol 1.25 MG (00024 UT) 1 capsule Orally weekly fo r 30 day(s) Dec, Clobetasol Propionate 0.05 % 1 application Externally Once a day for 14 day(s) Dec, tiZANidine HCl 2 MG 1-2 tablets as needed Orally Three times a day for 30 Days Dec, Treatment Notes Assessment Notes Clinical Notes Vitamin D deficiency weekly vitamin D sandoval pplements sent for patient to start Folliculitis barbae oral antibiotics and a steroid shampoo sent for patient to useif his symptoms persist will consider a referral to a blocker heated metal forms Acute midline low back pain with left-sided sciatica tizanidine sent for patient to start and a referral was placed for patient to start physical therapy again Referrals Referral Date Details 34y/o male with midline low back pain with numbness/tingling down right leg, had MRI showed bulging disc, Physical [facility] ([place] Next Appt Details 1 Year, sooner if needed Reason: Insurance Providers Payer Name Payer Address Payer Phone Insured Name Patient Relati onship to Insured Coverage Start Date Coverage End Date [facility] CORPORATE CLAIMS DEPT [address] [facility] [phone] [place] self
--- OUTSIDE RECORDS SUMMARY | 2021-02-09 15:34 | CCD ---
Author Author [facility] Organization [facility] Address Unknown Phone Unavailable Care Team Providers Care Funeral Service Licensee Name Role Phone Carisa Francisco Unavailable PROBLEMS Type Condition ICD9-CM Code [id number] Code Onset Dates Condition S tatus W/U Status Risk SNOMED Code Notes Problem Paresthesia of skin R20.2 Active confirmed 31263641 Problem Nicotine dependence, cigarettes, uncomplicated F17 .210 Active confirmed 17535542 Problem Acute midline low back pain with left-sided sciatica M54.42 Active confirmed 391656639 ALLERGIES No Known Allergies ENCOUNTERS from 1985 to 2020-12-01 Encounter Location Date Provider Diagnosis [address] [phone] [place] [address] Oct, Carisa Francisco Coccygeal pain M53.3 ; Adult general medical examination Z00.00 ; Dry skin L85.3 ; Screening for lipid disorders Z13.220 ; Screening for thyroid disorder Z13.29 and Screening for diabetes mellitus Z13.1 IMMUNIZATIONS No Information SOCIAL HISTORY Tobacco Use: Social History Observation Description Date Details (start date - stop date) Former Smoker Sex Assigned At : Social History Observation Description Sex Assigned At Unknown Education: Question Answer Notes Level of Education: College Audit Question Answer Notes Total Score: 0 Interpretation: Alcohol Education Language: Question Answer Notes Languages spoken: Tristanian Mormonism: Question Answer Notes Mormonism No denominational beliefs that would impact health care. Sexual [...] REASON FOR REFERRAL No Information VITAL SIGNS Weight 309 lbs Oct, Height 75 in Oct, BMI 38.62 kg/m2 Oct, Heart Rate 82 /min Oct, Respiratory Rate 18 /min Oct, Temperature 97.2 degrees Fahrenheit Oct, Oximetry 96 Oct, Blood pressure systolic 118 mm Hg Oct, Blood pressure diastolic 70 mm Hg Oct, MEDICATIONS Medication SIG (Take, Route, Frequency, Duration) Notes Start Da te End Date Status Chantix Starting Month Dylon 0.5 MG X 11 & 1 MG X 42 as directed Orally as directed for 30 Days Jun, Not-Taking Chantix Continuing Month Dylon 1 MG as directed Orally as directed for 30 Days Jun, Not-Taking PROCEDURES No Information RESULTS No Results REASON [...] Notes Treatment Notes Treatm ent Clinical Notes Oct, Coccygeal pain (ICD-10 - M53.3) patient to start alternating ice/heat and taking ibuprofen around the clock for a week Oct, Adult general medical examination (ICD-10 - Z00. 00) age appropriate anticipatory guidance given, per USPSTF recommendations; immunizations up to date. discussed plans for implementing improvement in identified areas Oct, Dry skin (ICD-10 - L85.3) patient to use a cream moisturizer, not lotion, like Cere Ve, Cetaphil, or Vanicream on the area Oct, Screening for lipid disorders (ICD-10 - Z13.220) Oct, Screening for thyroid disorder (ICD-10 - Z13.29) Oct, Screening for diabetes mellitus (ICD-10 - Z13.1) Oct, Other Total time spen t with the patient on the day of the encounter: 30 minutes PLAN OF TREATMENT Treatment Notes Assessment Notes Clinical Notes Coccygeal pain patient to start alt ernating ice/heat and taking ibuprofen around the clock for a week Adult general medical examination age ap propriate anticipatory guidance given, per USPSTF recommendations; immunizations up to date. discussed plans for implementing improvement in identified areas Dry skin patient to use a cre am moisturizer, not lotion, like Cere Ve, Cetaphil, or Vanicream on the area Future Test Test Name Order Date Comprehensive Metabolic Profile (CMP) [id number] LIPID PANEL (CARDIAC RISK) [id number] FREE T4 & TSH PANEL [id number] HEMOGLOBIN A1c [id number] VITAMIN D 25-HYDROXY [id number] Next Appt Details 4 Weeks Reason: Insurance Providers Payer Name Payer Address Payer Phone Insured Name Patient Relati onship to Insured Coverage Start Date Coverage End Date [employer] CORPORATE CLAIMS DEPT [address] [place] [phone] [place] self
--- OUTSIDE RECORDS SUMMARY | 2021-02-09 15:34 | CCD | Continuity of Care Document ---
Author Author [facility] Organization Unknown Address [address] [place] [address], [address] [place] [address] Phone [phone] Care Team Providers Care Percussion Tuner Name Role Phone Nolan Carisa ZACK AUTM [phone] Problems Active Problems Provider Date Bunion Terrell Talbot DPM Onset: 07/10/2019 Hammer toe Terrell Talbot DPM Onset: 07/10/2019 Pronation Terrell Talbot DPM Onset: 07/10/2019 Corns and callosities Terrell Talbot DPM Onset: 07/10/2019 Plantar fascial fibromatosis Terrell Talbot DPM Onset: 07/2019 Social History Type Date Description Comments Sex Unknown ETOH Use Denies alcohol use Tobacco Use Start: Unknown Patient is a current smoker, smo kes every day 1/2 ppd smoker since 2009 Allergies, Adverse Reactions, Alerts Active Allergies Reaction Severity Comments Date Penicillin V throat swelling 07/04/2019 Medications Active Medications SIG Qnty Indications Ordering Provide r Date Ammonium Lactate 12% Cream apply to feet daily 140gm Terrell Talbot DPM 07/04/2019 Ceftriaxone Sodium 250mg Solution Rec Marko QUICK,[place] Gabapentin 300mg Capsules Ali, Katlin M.DMatt Meloxicam 7.5mg Tablets Ali, Katlin M.D. Tizanidine HCL 4mg Tablets Ali, Katlin M.D. Azithromycin 500mg Tablets Marko RPA,[place] Methylprednisolone 4mg TBPK Unknown Immunizations Description No Information Available Vital Signs Date Vital Result Comment 11/05/2020 9:31am Height 75 inches 6'3" Weight 309.00 lb BP Systolic 120 mmHg BP Diastolic 80 mmHg Heart Rate 77 /min BMI (Body Mass Index) 38.6 kg/m2 07/04/2019 3:14pm Height 75 inches 6'3" Weight 220.00 lb BP Systolic 110 mmHg BP Diastolic 58 mmHg Heart Rate 75 /min BMI (Body Mass Index) 27.5 kg/m2 Results Description No Information Available Procedures Date Code Description Status 11/05/2020 92651 Office/Outpatient Established Lo w MDM 20-29 Min Completed Medical Devices Description No Information Available Encounters Type Date Location Provider Dx Diagnosis Office Visit 11/05/2020 9:30a [place] [facility] Terrell Talbot DPM M21.619 Bunion of unspecified foot M20.40 Other hammer toe(s) (acquire d), unspecified foot L84 Corns and callosities Assessments Date Code Description Provider 11/05/2020 M21.619 Bunion of unspecified foot Pancho Talbot DPM 11/05/2020 M20.40 Other hammer toe(s) (acquired), unspecified foot Terrell Talbot DPM 11/05/2020 L84 Corns and callosities Terrell Talbot DPM Plan of Treatment No Information Available Functional Status Description No Information Available Mental Status Description No Information Available Referrals Refer to Reason for Referral Status Appt Date Terrell Talbot DPM Created [address] [address] [phone]
--- OUTSIDE RECORDS SUMMARY | 2021-02-09 15:35 | CCD ---
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 Name Role Phone Claudia DONNELLY DPM Unavailable Unavailable Claudia DONNELLY DPM Unavailable Unavailable Claudia DONNELLY DPM Unavailable Unavailable Claudia DONNELLY DPM Unavailable Unavailable Claudia DONNELLY DPM Unavailable Unavailable Claudia DONNELLY DPM Unavailable Unavailable Claudia DONNELLY DPM Unavailable Unavailable Claudia DONNELLY DPM Unavailable Unavailable Claudia DONNELLY DPM Unavailable Unavailable Claudia DONNELLY DPM Unavailable Unavailable Claudia DONNELLY DPM Unavailable Unavailable Claudia DONNELLY DPM Unavailable Unavailable Claudia DONNELLY DPM Unavailable Unavailable Claudia DONNELLY DPM Unavailable Unavailable Claudia DONNELLY DPM Unavailable Unavailable Claudia DONNELLY DPM Unavailable Unavailable Claudia DONNELLY DPM Unavailable Unavailable Claudia DONNELLY DPM Unavailable Unavailable Claudia DONNELLY DPM Unavailable Unavailable Claudia DONNELLY DPM Unavailable Unavailable Claudia DONNELLY DPM Unavailable Unavailable Claudia DONNELLY DPM Unavailable Unavailable Claudia DONNELLY DPM Unavailable Unavailable Claudia DONNELLY DPM Unavailable Unavailable Claudia DONNELLY DPM Unavailable Unavailable Claudia DONNELLY DPM Unavailable Unavailable Claudia DONNELLY DPM Unavailable Unavailable Claudia DONNELLY DPM Unavailable Unavailable Claudia DONNELLY DPM Unavailable Unavailable EVA, R GM DPM Unavailable Unavailable MAJEVA, R GM DPM Unavailable Unavailable Re-disclosure Warning The records that you are about to access may contain information from federally-assisted alcohol or drug abuse programs. If such information is present, then the following federally mandated warning applies: This information has been disclosed to you from records protected by federal confidentiality rules (42 CFR part 2). The federal rules prohibit you from making any further disclosure of this information unless further disclosure is expressly permitted by the written consent of the person to whom it pertains or as otherwise permitted by 42 CFR part 2. A general authorization for the release of medical or other information is NOT sufficient for this purpose. The Federal rules restrict any use of the information to criminally investigate or prosecute any alcohol or drug abuse patient.The records that you are about to access may contain highly sensitive health information, the redisclosure of which is protected by Article 27-F of the [facility] Public Health law. If you continue you may have access to information: Regarding HIV / AIDS; Provided by facilities licensed or operated by the [facility] Office of Mental Health; or Provided by the [facility] Office for People With Developmental Disabilities. If such information is present, then the following [facility] mandated warning applies: This information has been disclosed to you from confidential records which are protected by state law. State law prohibits you from making any further disclosure of this information without the specific written consent of the person to whom it pertains, or as otherwise permitted by law. Any unauthorized further disclosure in violation of state law may result in a fine or mcc sentence or both. A general authorization for the release of medical or other information is NOT sufficient authorization for further disc losure. Encounters Encounter Providers Location Date Indications Data Source(s ) Out[place] [address] [facility] [address] 12/19/2020 12:00:00 AM EDT eCW1 ([facility]) Unknown [address] [facility] [address] 12/19/2020 12:00:00 AM EDT eCW1 ([facility]) Outpatient Attender: GM DONNELLY DPM [place] Office 10/18 09:30:00 AM EDT MED[facility] ([facility] [address] [facility] [address] 10/31/2020 12:00:00 AM EDT eCW1 ([facility]) Outpatient Attender: GM DONNELLY [facility] Office 01/18 08:15:00 AM EDT [facility] ([facility] Unknown [address] [facility] [address] 01/29/2020 12:00:00 AM EDT eCW1 ([facility]) Outpatient Attender: GM DONNELLY [facility] Office 12/18 11:15:00 AM EDT MEDENT ([facility] Immunizations Vaccine Date Status Description Data Source(s) COVID-[address] [facility] 08/01/2020 12:00:00 AM EDT completed NYSIIS Vaccine Series Complete: YESThis Data wa s Submitted to [facility] Via [employer]. Medications Medication Brand Name Start Date Product Form Dose Route Admi nistrative Instructions Pharmacy Instructions Status Indications Reaction Description Data Source(s) Clobetasol Propionate 0.5 MG/ML Topical Solution Clobe tasol Propionate 0.05 % Clobetasol Propionate 0.05 % 12/30/2020 12:00:00 AM EDT 1.0 {applicat ion} active Clobetasol Propionate 0.05 % eCW1 ([facility]) Clobetasol Propionate 0.5 MG/ML Topical Solution Clobe tasol Propionate 0.05 % Clobetasol Propionate 0.05 % 12/30/2020 12:00:00 AM EDT 1.0 {applicat ion} active Clobetasol Propionate 0.05 % eCW1 ([facility]) Clobetasol Propionate 0.5 MG/ML Medicated Shampoo Clob etasol Propionate 0.05 % Clobetasol Propionate 0.05 % 12/19/2020 12:00:00 AM EDT 1.0 {applicat ion} active Clobetasol Propionate 0.05 % eCW1 ([facility]) tizanidine 2 MG Oral Tablet tiZANidine HCl 2 MG tiZANidine H Cl 2 MG 12/19/2020 12:00:00 AM EDT active tiZANidi ne HCl 2 MG eCW1 ([facility]) doxycycline hyclate 100 MG Oral Tablet Doxycycline Hyc late 100 MG Doxycycline Hyclate 100 MG 12/19/2020 12:00:00 AM EDT 1.0 {tablet} active Doxycycline Hyclate 100 MG eCW1 ([facility]) Ergocalciferol 46275 UNT Oral Capsule Ergocalciferol 1 .25 MG (47956 UT) Ergocalciferol 1.25 MG (70655 UT) 12/19/2020 12:00:00 AM EDT 1.0 {c apsule} active Ergocalciferol 1.25 MG (5 0000 UT) eCW1 ([facility]) Clobetasol Propionate 0.5 MG/ML Medicated Shampoo Clob etasol Propionate 0.05 % Clobetasol Propionate 0.05 % 12/19/2020 12:00:00 AM EDT 1.0 {applicat ion} active Clobetasol Propionate 0.05 % eCW1 ([facility]) tizanidine 2 MG Oral Tablet tiZANidine HCl 2 MG tiZANidine H Cl 2 MG 12/19/2020 12:00:00 AM EDT active tiZANidi ne HCl 2 MG eCW1 ([facility]) doxycycline hyclate 100 MG Oral Tablet Doxycycline Hyc late 100 MG Doxycycline Hyclate 100 MG 12/19/2020 12:00:00 AM EDT 1.0 {tablet} active Doxycycline Hyclate 100 MG eCW1 ([facility]) Ergocalciferol 11184 UNT Oral Capsule Ergocalciferol 1 .25 MG (97149 UT) Ergocalciferol 1.25 MG (32815 UT) 12/19/2020 12:00:00 AM EDT 1.0 {c apsule} active Ergocalciferol 1.25 MG (5 0000 UT) eCW1 ([facility]) Clindamycin 300 MG Oral Capsule Clindamycin HCL 04/23/2020 12:00:00 A M EST ORAL completed MEDENT ([facility]) No Active Medications 04/08/2020 12:00:00 AM EST completed MEDENT ([facility]) Hydrocortisone 10 MG/ML Topical Cream Hydrocortisone 04/08/2020 12:00:00 AM EST active MEDENT ( [facility]) Doxycycline Monohydrate 100 MG Oral Capsule Doxycycline [place] hydrate 03/19/2020 12:00:00 AM EST completed MEDENT ([facility]) Insurance Providers Payer name Policy type / Coverage type Policy ID Covered democrat ID Covered democrat's relationship to blake Policy Blake Plan Information [place] F [id number] SELF 7 [id number] [place] O [id number] S [id number] MEDICAID [id number] SP [id number] SELF PAY ONLY [id number] SP [id number] [facility] O [id number] S [id number] [facility] COMMUNITY PLAN [facility] [id number] SP [id number] MEDICAID P [id number] S [id number] MEDICAID P [id number] S [id number] AQUILINO [id number] SP [id number] Problems, Conditions, and Diagnoses Code Display Name Description Problem Type Effective Dates Data Source(s) E55.9 [id number] Vitamin D deficiency Problem 12/19/2020 12:0 0:00 AM EDT eCW1 ([facility]) L60.0 Ingrowing nail Ingrowing nail Problem 01/03/2020 12:00: 00 AM EDT MEDENT ([facility] Surgeries/Procedures Procedure Description Date Indications Data Source(s) OFFICE OUTPATIENT VISIT 15 MINUTES 11/05/2020 12:00:00 AM EDT [facility] ([facility] AVULSION NAIL PLATE PARTIAL/COMPLETE SIMPLE 1 12/29/19 20 12:00:00 AM EDT [facility] ([facility] Results No Information Social History Code Duration Value Status Description Data Source(s ) Smoking 12/19/2020 12:00:00 AM EDT Former Smoker completed Former Smoker eCW1 ([facility]) Smoking 12/19/2020 12:00:00 AM EDT Former Smoker completed Former Smoker eCW1 ([facility]) Smoking 10/31/2020 12:00:00 AM EDT Former Smoker completed Former Smoker eCW1 ([facility]) Vital Signs ID Date Data Source UNK Name Value Range Interpretation Code Description Data Source(s) Diastolic blood pressure 72 mm[Hg] 72 mm[Hg] eCW1 ([facility]) Body weight 291.8 [lb_av] 291.8 [lb_av] eCW1 ([facility]) Body weight 132.36 kg 132.36 kg eCW1 ([facility]) Body height 75 [in_i] 75 [in_i] eCW1 ([facility]) Body mass index (BMI) [Ratio] 36.47 kg/m2 36.47 kg/m2 eCW1 ([facility]) Heart rate 96 /min 96 /min eCW1 ([facility]) Respiratory rate 18 /min 18 /min eCW1 ([facility]) Body temperature 97.5 [degF] 97.5 [degF] eCW1 ( [facility]) Systolic blood pressure 116 mm[Hg] 116 mm[Hg] e CW1 ([facility]) Body weight 309.00 [lb_av] 309.00 [lb_av] MEDEN T ([facility] Body height 75 [in_i] 75 [in_i] MEDENT ([facility] 6'3" Systolic blood pressure 120 mm[Hg] 120 mm[Hg] M EDENT ([facility] Diastolic blood pressure 80 mm[Hg] 80 mm[Hg] MED[facility] ([facility] Heart rate 77 /min 77 /min MEDENT ([facility] Body mass index (BMI) [Ratio] 38.6 kg/m2 38.6 k g/m2 MED[facility] ([facility] Body weight 309 [lb_av] 309 [lb_av] eCW1 ([facility]) Respiratory rate 18 /min 18 /min eCW1 ([facility]) Body temperature 97.2 [degF] 97.2 [degF] eCW1 ( [facility]) Systolic blood pressure 118 mm[Hg] 118 mm[Hg] e CW1 ([facility]) Diastolic blood pressure 70 mm[Hg] 70 mm[Hg] eCW1 ([facility]) Heart rate 82 /min 82 /min eCW1 ([facility]) Body height 75 [in_i] 75 [in_i] eCW1 ([facility]) Body mass index (BMI) [Ratio] 38.62 kg/m2 38.62 kg/m2 eCW1 ([facility]) Body weight 257.00 [lb_av] 257.00 [lb_av] MEDEN T ([facility]) Diastolic blood pressure 80 mm[Hg] 80 mm[Hg] MEDENT ([facility]) Heart rate 80 /min 80 /min MEDENT ([facility]) Respiratory rate 18 /min 18 /min MEDENT ( [facility]) Body temperature 98.7 [degF] 98.7 [degF] MEDENT ([facility]) Body weight 196.00 [lb_av] 196.00 [lb_av] MEDEN T ([facility]) Systolic blood pressure 142 mm[Hg] 142 mm[Hg] M EDENT ([facility]) Patient Treatment Plan of Care Planned Activity Planned Date Details Description Data Source (s) Clobetasol Propionate 0.5 MG/ML Topical Solution 12/30/2020 12:00:0 0 AM EDT eCW1 ([facility]) Clobetasol Propionate 0.5 MG/ML Topical Solution 12/30/2020 12:00:0 0 AM EDT eCW1 ([facility]) tizanidine 2 MG Oral Tablet 12/19/2020 12:00:00 AM EDT eCW1 ([facility]) Ergocalciferol 18224 UNT Oral Capsule 12/19/2020 12:00:00 AM EDT eCW1 ([facility]) doxycycline hyclate 100 MG Oral Tablet 12/19/2020 12:00:00 AM EDT eCW1 ([facility]) Clobetasol Propionate 0.5 MG/ML Medicated Shampoo 12/19/2020 12: 00:00 AM EDT eCW1 ([facility]) tizanidine 2 MG Oral Tablet 12/19/2020 12:00:00 AM EDT eCW1 ([facility]) Ergocalciferol 19541 UNT Oral Capsule 12/19/2020 12:00:00 AM EDT eCW1 ([facility]) doxycycline hyclate 100 MG Oral Tablet 12/19/2020 12:00:00 AM EDT eCW1 ([facility]) Clobetasol Propionate 0.5 MG/ML Medicated Shampoo 12/19/2020 12: 00:00 AM EDT eCW1 ([facility])
[2021-02-09] MEDS ORDERED: KETOROLAC 30 MG/ML 1ML VIAL IV ONE ×2 (15:45→17:35)
--- OUTSIDE RECORDS SUMMARY | 2021-02-09 16:18 | CCD ---
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 If you continue you may have access to information: Regarding HIV / AIDS; Provided by facilities licensed or operated by the [facility] Office of Mental Health; or Provided by the [facility] Office for People With Developmental Disabilities. If such information is present, then the following [facility] mandated warning applies: This information has been [...] law may result in a fine or custodial sentence or both. A general authorization for the release of medical or other information is NOT sufficient authorization for further disc losure. Encounters Encounter Providers Location Date Indications Data Source(s ) [place] [address] [facility] [address] 12/19/2020 12:00:00 AM EDT eCW1 ([facility]) Unknown [address] [facility] [address] 12/19/2020 12:00:00 AM EDT eCW1 ([facility]) Outpatient Attender: GM DONNELLY DPM [place] Office 10/18 09:30:00 AM EDT [facility] ([facility] [place] [address] [facility] [address] 10/31/2020 12:00:00 AM EDT eCW1 ([facility]) Outpatient Attender: GM DONNELLY [facility] Office 01/18 08:15:00 AM EDT [facility] ([facility] Unknown [address] [facility] [address] 01/29/2020 12:00:00 AM EDT eCW1 ([facility]) Outpatient Attender: GM DONNELLY [facility] Office 12/18 11:15:00 AM EDT MEDENT ([facility] Immunizations Vaccine Date Status Description Data Source(s) COVID-19 VACCINE [facility] 08/01/2020 12:00:00 AM EDT completed NYSIIS Vaccine Series Complete: YESThis Data wa s Submitted to [facility] Via [employer]. Medications Medication Brand Name Start Date Product Form Dose Route Admi nistrative Instructions Pharmacy Instructions Status Indications Reaction Description Data Source(s) Clobetasol Propionate 0.5 MG/ML Topical Solution Clobe tasol Propionate 0.05 % Clobetasol Propionate 0.05 % 12/30/2020 12:00:00 AM EDT 1.0 {applicat ion} active Clobetasol Propionate 0.05 % eCW1 ([facility]) Clobetasol Propionate 0.5 MG/ML Topical Solution Clobe tasol Propionate 0.05 % Clobetasol Propionate 0.05 % 12/30/2020 12:00:00 AM EDT 1.0 {applicat ion} active Clobetasol Propionate 0.05 % eCW1 ([facility]) Clobetasol Propionate 0.5 MG/ML Medicated Shampoo Clob etasol Propionate 0.05 % Clobetasol Propionate 0.05 % 12/19/2020 12:00:00 AM EDT 1.0 {applicat ion} active Clobetasol Propionate 0.05 % eCW1 ([facility]) tizanidine 2 MG Oral Tablet tiZANidine HCl 2 MG tiZANidine H Cl 2 MG 12/19/2020 12:00:00 AM EDT active tiZANidi ne HCl 2 MG eCW1 ([facility]) doxycycline hyclate 100 MG Oral Tablet Doxycycline Hyc late 100 MG Doxycycline Hyclate 100 MG 12/19/2020 12:00:00 AM EDT 1.0 {tablet} active Doxycycline Hyclate 100 MG eCW1 ([facility]) Ergocalciferol 01403 UNT Oral Capsule Ergocalciferol 1 .25 MG (82961 UT) Ergocalciferol 1.25 MG (21535 UT) 12/19/2020 12:00:00 AM EDT 1.0 {c apsule} active Ergocalciferol 1.25 MG (5 0000 UT) eCW1 ([facility]) Clobetasol Propionate 0.5 MG/ML Medicated Shampoo Clob etasol Propionate 0.05 % Clobetasol Propionate 0.05 % 12/19/2020 12:00:00 AM EDT 1.0 {applicat ion} active Clobetasol Propionate 0.05 % eCW1 ([facility]) tizanidine 2 MG Oral Tablet tiZANidine HCl 2 MG tiZANidine H Cl 2 MG 12/19/2020 12:00:00 AM EDT active tiZANidi ne HCl 2 MG eCW1 ([facility]) doxycycline hyclate 100 MG Oral Tablet Doxycycline Hyc late 100 MG Doxycycline Hyclate 100 MG 12/19/2020 12:00:00 AM EDT 1.0 {tablet} active Doxycycline Hyclate 100 MG eCW1 ([facility]) Ergocalciferol 22347 UNT Oral Capsule Ergocalciferol 1 .25 MG (02603 UT) Ergocalciferol 1.25 MG (42622 UT) 12/19/2020 12:00:00 AM EDT 1.0 {c apsule} active Ergocalciferol 1.25 MG (5 0000 UT) eCW1 ([facility]) Clindamycin 300 MG Oral Capsule Clindamycin HCL 04/23/2020 12:00:00 A M EST ORAL completed MEDENT ([facility]) No Active Medications 04/08/2020 12:00:00 AM EST completed MEDENT ([facility]) Hydrocortisone 10 MG/ML Topical Cream Hydrocortisone 04/08/2020 12:00:00 AM EST active MEDENT ( [facility]) Doxycycline Monohydrate 100 MG Oral Capsule Doxycycline [place] hydrate 03/19/2020 12:00:00 AM EST completed MEDENT ([facility]) Insurance Providers Payer name Policy type / Coverage type Policy ID Covered libertarian ID Covered libertarian's relationship to blake Policy Blake Plan Information [place] Medicaid F [id number] SELF 7 [id number] [place] [employer] [place] O [id number] S [id number] MEDICAID [id number] SP [id number] SELF PAY ONLY [id number] SP [id number] O [facility] O [id number] S [id number] [facility] COMMUNITY [facility]AN [facility] [id number] SP [id number] MEDICAID P [id number] S [id number] MEDICAID P [id number] S [id number] AQUILINO [id number] SP [id number] Problems, Conditions, and Diagnoses Code Display Name Description Problem Type Effective Dates Data Source(s) E55.9 [id number] Vitamin D deficiency Problem 12/19/2020 12:0 0:00 AM EDT eCW1 ([facility]) L60.0 Ingrowing nail Ingrowing nail Problem [...] EDT Former Smoker completed Former Smoker eCW1 ([facility]) Smoking 12/19/2020 12:00:00 AM EDT Former Smoker completed Former Smoker eCW1 ([facility]) Smoking 10/31/2020 12:00:00 AM EDT Former Smoker completed Former Smoker eCW1 ([facility]) Vital Signs ID Date Data Source UNK Name Value Range Interpretation Code Description Data Source(s) Diastolic blood pressure 72 mm[Hg] 72 mm[Hg] eCW1 ([facility]) Body weight 291.8 [lb_av] 291.8 [lb_av] eCW1 ([facility]) Body weight 132.36 kg 132.36 kg W1 ([facility]) Body height 75 [in_i] 75 [in_i] eCW1 ([facility]) Body mass index (BMI) [Ratio] 36.47 kg/m2 36.47 kg/m2 eCW1 ([facility]) Heart rate 96 /min 96 /min eCW1 ([facility]) Respiratory rate 18 /min 18 /min eCW1 ([facility]) Body temperature 97.5 [degF] 97.5 [degF] eCW1 ( [facility]) Systolic blood pressure 116 mm[Hg] 116 mm[Hg] e CW1 ([facility]) Body height 75 [in_i] 75 [in_i] [facility] ([facility] 6'3" Systolic blood pressure 120 mm[Hg] 120 mm[Hg] M EDENT ([facility] Diastolic blood pressure 80 mm[Hg] 80 mm[Hg] MEDENT ([facility] Body weight 309.00 [lb_av] 309.00 [lb_av] MEDEN T ([facility] Heart rate 77 /min 77 /min MED[facility] ([facility] Body mass index (BMI) [Ratio] 38.6 kg/m2 38.6 k g/m2 MED[facility] ([facility] Respiratory rate 18 /min 18 /min eCW1 ([facility]) Heart rate 82 /min 82 /min eCW1 ([facility]) Body weight 309 [lb_av] 309 [lb_av] eCW[facility] Body height 75 [in_i] 75 [in_i] eCW1 ([facility]) Body mass index (BMI) [Ratio] 38.62 kg/m2 38.62 kg/m2 eCW1 ([facility]) Body temperature 97.2 [degF] 97.2 [degF] eCW1 ( [facility]) Systolic blood pressure 118 mm[Hg] 118 mm[Hg] e CW1 ([facility]) Diastolic blood pressure 70 mm[Hg] 70 mm[Hg] eCW1 ([facility]) Body weight 257.00 [lb_av] 257.00 [lb_av] MEDEN T ([facility]) Diastolic blood pressure 80 mm[Hg] 80 mm[Hg] MEDENT ([facility]) Respiratory rate 18 /min 18 /min MEDENT ( [facility]) Body temperature 98.7 [degF] 98.7 [degF] MEDENT ([facility]) Body weight 196.00 [lb_av] 196.00 [lb_av] MEDEN T ([facility]) Heart rate 80 /min 80 /min MEDENT ([facility]) Systolic blood pressure 142 mm[Hg] 142 mm[Hg] M EDENT ([facility]) Patient Treatment Plan of Care Planned Activity Planned Date Details Description Data Source (s) Clobetasol Propionate 0.5 MG/ML Topical Solution 12/30/2020 12:00:0 0 AM EDT eCW1 ([facility]) Clobetasol Propionate 0.5 MG/ML Topical Solution 12/30/2020 12:00:0 0 AM EDT eCW1 ([facility]) tizanidine 2 MG Oral Tablet 12/19/2020 12:00:00 AM EDT eCW1 ([facility]) Ergocalciferol 42411 UNT Oral Capsule 12/19/2020 12:00:00 AM EDT eCW1 ([facility]) doxycycline hyclate 100 MG Oral Tablet 12/19/2020 12:00:00 AM EDT eCW1 ([facility]) Clobetasol Propionate 0.5 MG/ML Medicated Shampoo 12/19/2020 12: 00:00 AM EDT eCW1 ([facility]) tizanidine 2 MG Oral Tablet 12/19/2020 12:00:00 AM EDT eCW1 ([facility]) Ergocalciferol [id number] UNT Oral Capsule 12/19/2020 12:00:00 AM EDT eCW1 ([facility]) doxycycline hyclate 100 MG Oral Tablet 12/19/2020 12:00:00 AM EDT eCW1 ([facility]) Clobetasol Propionate 0.5 MG/ML Medicated Shampoo 12/19/2020 12: 00:00 AM EDT eCW1 ([facility])
--- NOTE | 2021-02-09 16:41 | REP ---
INDICATION: lef tflank pain. COMPARISON: None. TECHNIQUE: Imaging protocol: Computed tomography of the abdomen and pelvis without IV contrast. Contiguous 3 mm thick axial projection images were obtained through the abdomen and pelvis. 2D sagittal and coronal reconstructions were performed. Radiation optimization: All CT scans at this facility use at least one of these dose optimization techniques: automated exposure control; mA and/or kV adjustment per patient size (includes targeted exams where dose is matched to clinical indication); or iterative reconstruction. FINDINGS: Heart and lung bases: The lung bases are clear. There are no pleural effusions. The heart size is normal. There is no pericardial effusion. Liver: Normal unenhanced appearance. Gallbladder: Normal. Spleen: Normal unenhanced appearance. Pancreas: Normal unenhanced appearance. Adrenal glands: Normal unenhanced appearance. Kidneys/bladder: There is a cortical cyst in the interpolar region of the right kidney. The left kidney and urinary bladder have a normal unenhanced appearance. Pelvic structures: The prostate gland measures 5.1 cm in transverse dimension and contains a coarse calcification. The seminal vesicles have a normal unenhanced appearance. There is no free fluid the pelvis. There are multiple reactive external iliac and inguinal lymph nodes, bilaterally. GI tract: There is a small hiatal hernia. There is thickening of the submucosal fat of the entire colon. This is a nonspecific finding but is associated with inflammatory bowel disease. There is a normal appendix demonstrated. Abdominal wall and mesentery: There are no abdominal wall defects. There is no mesenteric or retroperitoneal lymphadenopathy. Abdominal aorta and vascular structures: The abdominal aorta has a normal unenhanced appearance. Bony structures: The SI joints and hips are normal. There is degenerative disc disease, L4-5. IMPRESSION: 1. There is no evidence of nephrolithiasis, ureterolithiasis or hydronephrosis. 2. There is thickening of the submucosal fat of the colon. This is a nonspecific finding but is associated with inflammatory bowel disease. 3. There is a small hiatal hernia. 4. Degenerative disc disease, L4-5. <Electronically signed by Jared Doyle > 02/09/21 [id number]
[2021-02-09] MEDS ORDERED: METHOCARBAMOL 1,000 MG/10 ML VIAL (J2800) IV ONE (16:50)
[2021-02-09] MEDS ORDERED: NS 1,000 ML IV ONE (17:50)
--- NOTE | 2021-02-09 17:52 | ECGEPIP ---
[facility] - ED Test Date: 2021-02-09 Pat Name: MING GREENBERG Department: Room: - Gender: Male Client Development Consultant: AB : 1985 Requested By: Giovanna Faust Order Number: [id number] Reading MD: Giovanna Faust Measurements Intervals [place] Rate: 53 P: 53 OR: 174 QRS: 64 QRSD: 92 T: 54 QT: 408 QTc: 382 Interpretive Statements Sinus bradycardia with sinus arrhythmia decreased rate 08/24/19 Electronically Signed on 02-09-2021 17:51:38 EDT by Giovanna Faust
[2021-02-09 19:08] LABS: AMPHETAMINES LEVEL URINE NEGATIVE (NEGATIVE); BARBITURATES URINE NEGATIVE (NEGATIVE); BENZODIAZEPINES URINE NEGATIVE (NEGATIVE); CANNABINOIDS URINE POSITIVE (NEGATIVE); COCAINE METABOLITE URINE NEGATIVE (NEGATIVE); METHADONE URINE NEGATIVE (NEGATIVE); OPIATES URINE NEGATIVE (NEGATIVE); PHENCYCLIDINE URINE NEGATIVE (NEGATIVE)
[2021-02-09 20:26] LABS: ALBUMIN 3.4 GM/DL (3.2-5.2); BILIRUBIN,DIRECT 0.4 MG/DL (0.0-0.2); BILIRUBIN,TOTAL 1.3 MG/DL (0.2-1.0); TOTAL PROTEIN 7.3 GM/DL (6.4-8.2)
[2021-02-09 21:53] LABS: BASO % 0.2 % (0.0-1.0); HEMATOCRIT 44.2 % (42.0-52.0); HEMOGLOBIN 15.5 g/dl (13.5-17.5); LYMPH # 1.6 10^3/uL (1.5-5.0); LYMPH % 12.8 % (24.0-44.0); MEAN CORPUSCULAR HEMOGLOBIN 31.8 pg (27.0-33.0); MEAN CORPUSCULAR HGB CONC 35.1 g/dl (32.0-36.5); MEAN CORPUSCULAR VOLUME 90.6 fl (80.0-96.0); MONO # 0.3 10^3/uL (0.0-0.8); MONO % 2.5 % (2.0-8.0); NEUTROPHILS # 10.8 10^3/uL (1.5-8.5); NEUTROPHILS % 84.2 % (36.0-66.0); PLATELET COUNT, AUTOMATED 276 10^3/uL (150-450); RED BLOOD COUNT 4.88 10^6/uL (4.30-6.10); WHITE BLOOD COUNT 12.8 10^3/uL (4.0-10.0)
[2021-02-09] MEDS ORDERED: ZOFR4TAB16 PO (22:31)
[2021-02-09 22:45] VITALS: BP 168/84
== END 2021-02-09 23:00 | disposition home or self-care (01) ==
LOC: M ED 15:28
DX: K29.00 Acute gastritis without bleeding (principal); I10 Essential (primary) hypertension; M54.9 Dorsalgia, unspecified; R00.1 Bradycardia, unspecified; F14.188 Cocaine abuse with other cocaine-induced disorder; Z86.73 Personal history of transient ischemic attack (TIA), and cerebral infarction without residual deficits; Z87.891 Personal history of nicotine dependence; M51.36 Other intervertebral disc degeneration, lumbar region; Z88.0 Allergy status to penicillin
CPT/HCPCS: 74176; 80047; 80076; 80307; 81001; 82550; 83605; 85025; 93005; 96361; 96374; 96375; 96376; 99285; J1885; J2800

== ENCOUNTER 2021-03-03 18:22 | Emergency (ER) | payer OTHER ==
[~2021-03-03] VITALS: Ht 190.5 cm; Wt 117.5 kg
[~2021-03-03 18:22] MED LIST changes: +ZOFR4TAB16 PO
--- OUTSIDE RECORDS SUMMARY | 2021-03-03 18:32 | CCD ---
Author Author [facility] Organization [facility] Address Unknown Phone Unavailable Care Team Providers Care Internal Audit Manager Name Role Phone NO, PCP Unavailable Unavailable Claudia DONNELLY DPM Unavailable Unavailable [...] Unavailable Unavailable Claudia DONNELLY DPM Unavailable Unavailable MAJAK, R GM DPM Unavailable Unavailable MAJAK, R GM DPM Unavailable Unavailable MAJAK, R GM DPM Unavailable Unavailable MAJAK, R GM DPM Unavailable Unavailable MAJAK, R GM DPM Unavailable Unavailable MAJAK, R GM DPM Unavailable Unavailable TURRIN, JAYDEN Unavailable Unavailable TURRIN, JAYDEN Unavailable Unavailable TURRIN, JAYDEN Unavailable Unavailable TURRIN, JAYDEN Unavailable Unavailable Swatsworth, A Chris PA Unavailable Unavailable Swatsworth, A Chris PA Unavailable Unavailable Swatsworth, A Chris PA Unavailable Unavailable Swatsworth, A Chris PA Unavailable Unavailable Swatsworth, A Chris PA Unavailable Unavailable Swatsworth, A Chris PA Unavailable Unavailable Swatsworth, A Chris PA Unavailable Unavailable Swatsworth, A Chris PA Unavailable Unavailable Swatsworth, A Chris PA Unavailable Unavailable Swatsworth, A Chris PA Unavailable Unavailable Swatsworth, A Chris PA Unavailable Unavailable Swatsworth, A Chris PA Unavailable Unavailable Swatsworth, A Chris PA Unavailable Unavailable Swatsworth, A Chris PA Unavailable Unavailable Swatsworth, A Chris PA Unavailable Unavailable Re-disclosure Warning The records that [...] is protected by Article 27-F of the [place] State Public Health law. If you continue you may have access to information: Regarding HIV / AIDS; Provided by facilities licensed or operated by the [facility] Office of Mental Health; or Provided by the [facility] Office for People With Developmental Disabilities. If such information is present, then the following [facility] mandated warning applies: This information has [...] law may result in a fine or [place] health care facility sentence or both. A general authorization for the release of medical or other information is NOT sufficient authorization for further disc losure. Encounters Encounter Providers Location Date Indications Data Source(s ) Emergency Attender: Chris Barnett PAConsultant: PCP NO 03/01/2021 04:45:00 PM EST - 03/01/2021 07:11:00 PM EST [facility] Patient discharged. Emergency Attender: JAYDEN BUCKConsultant: PCP NO 02/10/2021 04:18:00 PM EDT - 02/10/2021 07:04:00 PM EDT [facility] Patient discharged. Outpatient [address] [address] 12/19/2020 12:00:00 AM EDT eCW1 ([facility]) Unknown [address] [facility] [place] [address] 12/19/2020 12:00:00 AM EDT eCW1 ([facility]) Outpatient Attender: GM DONNELLY [facility] 10/18 09:30:00 AM EDT [facility] ([facility] Outpatient [address] [address] 10/31/2020 12:00:00 AM EDT eCW1 ([facility]) Outpatient Attender: GM DONNELLY [facility] 01/18 08:15:00 AM EDT [facility] ([facility] Unknown [address] [address] 01/29/2020 12:00:00 AM EDT eCW1 ([facility]) Immunizations Vaccine Date Status Description Data Source(s) COVID-19 VACCINE Pablo 08/01/2020 12:00:00 AM EDT completed [facility] Vaccine Series Complete: YESThis Data wa s Submitted to [facility] Via [employer]. Medications Medication Brand Name Start Date Product Form Dose Route Admi nistrative Instructions Pharmacy Instructions Status Indications Reaction Description Data Source(s) Clobetasol Propionate 0.5 MG/ML Topical Solution Clobe tasol Propionate 0.05 % Clobetasol Propionate 0.05 % 12/30/2020 12:00:00 AM EDT 1.0 {applicat ion} active Clobetasol Propionate 0.05 % eCW1 ([facility]) Clobetasol Propionate 0.5 MG/ML Topical Solution Clobe tasol Propionate 0.05 % Clobetasol Propionate 0.05 % 12/30/2020 12:00:00 AM EDT 1.0 {applicat ion} active Clobetasol Propionate 0.05 % eCW1 ([facility]) Clobetasol Propionate 0.5 MG/ML Medicated Shampoo Clob etasol Propionate 0.05 % Clobetasol Propionate 0.05 % 12/19/2020 12:00:00 AM EDT 1.0 {applicat ion} active Clobetasol Propionate 0.05 % eCW1 ([facility]) tizanidine 2 MG Oral Tablet tiZANidine HCl 2 MG tiZANidine H Cl 2 MG 12/19/2020 12:00:00 AM EDT active tiZANidi ne HCl 2 MG eCW1 ([facility]) doxycycline hyclate 100 MG Oral Tablet Doxycycline Hyc late 100 MG Doxycycline Hyclate 100 MG 12/19/2020 12:00:00 AM EDT 1.0 {tablet} active Doxycycline Hyclate 100 MG eCW1 ([facility]) Ergocalciferol 10570 UNT Oral Capsule Ergocalciferol 1 .25 MG (16090 UT) Ergocalciferol 1.25 MG (54460 UT) 12/19/2020 12:00:00 AM EDT 1.0 {c apsule} active Ergocalciferol 1.25 MG (5 0000 UT) eCW1 ([facility]) Clobetasol Propionate 0.5 MG/ML Medicated Shampoo Clob etasol Propionate 0.05 % Clobetasol Propionate 0.05 % 12/19/2020 12:00:00 AM EDT 1.0 {applicat ion} active Clobetasol Propionate 0.05 % eCW1 ([facility]) tizanidine 2 MG Oral Tablet tiZANidine HCl 2 MG tiZANidine H Cl 2 MG 12/19/2020 12:00:00 AM EDT active tiZANidi ne HCl 2 MG eCW1 ([facility]) doxycycline hyclate 100 MG Oral Tablet Doxycycline Hyc late 100 MG Doxycycline Hyclate 100 MG 12/19/2020 12:00:00 AM EDT 1.0 {tablet} active Doxycycline Hyclate 100 MG eCW1 ([facility]) Ergocalciferol 03923 UNT Oral Capsule Ergocalciferol 1 .25 MG (98087 UT) Ergocalciferol 1.25 MG (78838 UT) 12/19/2020 12:00:00 AM EDT 1.0 {c apsule} active Ergocalciferol 1.25 MG (5 0000 UT) eCW1 ([facility]) Clindamycin 300 MG Oral Capsule Clindamycin HCL 04/23/2020 12:00:00 A M EST ORAL completed [facility] ([facility]) No Active Medications 04/08/2020 12:00:00 AM EST completed [facility] ([facility]) Hydrocortisone 10 MG/ML Topical Cream Hydrocortisone 04/08/2020 12:00:00 AM EST active [facility] ( [facility]) Doxycycline Monohydrate 100 MG Oral Capsule Doxycycline Desoto hydrate 03/19/2020 12:00:00 AM EST completed [facility] ([facility]) Insurance Providers Payer name Policy type / Coverage type Policy ID Covered constitution party ID Covered constitution party's relationship to friedman Policy Friedman Plan Information Mehrdad Medicaid F [id number] SELF [id number] MEHRDAD [id number] SP [id number] MEHRDAD [facility] O [id number] S [id number] MEDICAID [id number] SELF PAY ONLY [id number] SP [id number] O UNAVAILABLE UNAVAILA BLE [employer](MCAID) O [id number] S [id number] [facility] [id number] SP [id number] MEDICAID P [id number] S [id number] MEDICAID P [id number] S [id number] MEHRDAD CARE OF [place] -OP [id number] 18 [id number] Problems, Conditions, and Diagnoses Code Display Name Description Problem Type Effective Dates Data Source(s) [id number] Unspecified [address] in unspeci fied non-institutional (private) residence as the place of occurrence of the external cause Unspecified place in unspecified non-institutional (private) residence as the place of occurrence of the external cause Diagnosis 02/10/2021 04:18:00 PM EDT [facility] [id number] Overexertion from prolonged static or awkward postures, initial encounter Overexertion from prolonged static or aw kward postures, initial encounter Diagnosis 02/10/2021 04:18:00 PM EDT [facility] Z8673 Personal history of transien t ischemic attack (TIA), 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 (TIA), and cerebral infarction without residual deficits Diagnosis 02/10/2021 04:18:00 PM EDT [facility] Z6833 Body mass index [BMI] 33.0-33.9, adult B lucia mass index [BMI] 33.0-33.9, adult Diagnosis 02/10/2021 04:18:00 PM EDT [facility] E669 Obesity, unspecified Obesity, unspecified Diagnosis 02/10/2021 04:18:00 PM EDT [facility] H11427 Nicotine dependence, cigarettes, uncompl icated Nicotine dependence, cigarettes, uncomplicated Diagnosis 02/10/2021 04:18:00 PM EDT [facility] [id number] Strain of muscle and tendon of front wal l of thorax, initial encounter Strain of muscle and tendon of front wall of thorax, initial encounter Diagnosis 02/10/2021 04:18:00 PM EDT [facility] [id number] Unspecified injury of thorax, initial en counter Unspecified injury of thorax, initial encounter Diagnosis 02/10/2021 04:18:00 PM EDT [facility] E55.9 [id number] Vitamin D deficiency Problem 12/19/2020 12:0 0:00 AM EDT eCW1 ([facility]) L60.0 Ingrowing nail Ingrowing nail Problem 01/03/2020 12:00: 00 AM EDT [facility] ([facility] Surgeries/Procedures Procedure Description Date Indications Data Source(s) OFFICE OUTPATIENT VISIT 15 MINUTES 11/05/2020 12:00:00 AM EDT [facility] ([facility] Results ID Date Data Source [id number] 03/02/2021 09:07:00 AM EST [facility] [address] [place] [address] PHONE: [phone] FAX: [phone] Name .................. : MAGDY Valentin Acct Number.................. : [id number] [facility] ................. [facility] Number ................... : [id number] Stay type ............. : E/R Discharge Date......... ... : 03/01/21 Admit Date ......... : 03/01/21 Admit Phys .................... : ALBERT Date of ....... : 1985 Family Phys ................... : NO PCP Phone .................. : [phone] Age ................................ : 35 Film# .................. .:[id number] Sex ................................. : M Unsigned transcriptions are preliminary reports and do not represent a medical or legal document CT ABD & PELVIS W/ IV ONLY [id number] COMPLETE:03/01/21 19:24 NICOLA [id number] Reason(s): Abdominal Pain CT ABDOMEN AND PELVIS WITH IV CONTRAST INDICATION: Abdominal pain. Left-sided abdominal pain. COMPARISON: None IV CONTRAST: 75 cc Isovue-370 One or more of the following dose reduction techniques were utilized in effectively lowering the radiation dose for this examination: Automated Exposure Control, Adjustment of the mA and/or kV according to patient size, or Iterative reconstruction. FINDINGS: LUNG BASES: Minimal basilar atelectasis/scar. 5 mm sub-solid triangular right lateral lower lobe pleural margin density series 204 image 15. Low-attenuation structure not fully included along right anterior lower lobe pulmonary vein margin. Indeterminate etiology. This could represent adenopathy or cystic structure. LIVER/BILIARY: Low-attenuation at the falciform ligament is a common normal variant. No other liver abnormalities. Unremarkable gallbladder. SPLEEN: Normal. PANCREAS: Normal. ADRENALS: Normal bilaterally. KIDNEYS/: Detail compromised by motion. Partially exophytic right mid kidney lesion measuring 12 mm most likely cyst. No hydronephrosis. No nephrolithiasis. Collapsed bladder grossly normal. No significant abnormalities seen in the reproductive organs. BOWEL/GI: Normal appendix. Minimal diverticulosis without diverticulitis. No colitis. Bowel [address] [place] [address] PHONE: [phone] FAX: [phone] Name .................. : MAGDY Valentin Acct Number.................. : [id number] ROOM. ................. : VT-23 MR Number ................... : [id number] Stay type ............. : E/R Discharge Date......... ... : 03/01/21 Admit Date ......... : 03/01/21 Admit Phys .................... : ALBERT Date of ....... : 1985 Family Phys ................... : NO PCP Phone .................. : [phone] Age ................................ : 35 Film# .................. .:[id number] Sex ................................. : M Unsigned transcriptions are preliminary reports and do not represent a medical or legal document CT ABD & PELVIS W/ IV ONLY [id number] COMPLETE:03/01/21 19:24 NICOLA [id number] Reason(s): Abdominal Pain detail in the midabdomen obscured by respiratory motion. No obstruction. No free air or free fluid is identified. NODES/RETROPERITONEUM: No adenopathy. No retroperitoneal mass or hematoma. SKELETAL: Chronic ossifications along the anterior acetabular margins bilaterally. Minimal degenerative disc change L4-5 and lower thoracic spine. At T9-10 there is eccentric osteophyte to the right with at least mild canal stenosis. IMPRESSION: No specific etiology for left abdominal pain is identified. Images are somewhat degraded by motion. Ill-defined right lower lobe nodule. Follow-up recommendations noted below. Fluid attenuation structure not fully included along right inferior pulmonary vein margin. This could represent adenopathy or mediastinal cyst. When clinically appropriate these findings can be assessed with contrast-enhanced CT chest. Thoracic spine degenerative change with canal stenosis. No acute GI process. No acute process. [employer] G[employer] SOLID NODULES SINGLE < 6mm Low Risk: No routine follow-up. High Risk: <6 mm: Optional CT at 12 months. 6-8 mm Low Risk: CT at 6-12 months, then consider CT at 18-24 months. High Risk: 6-8 mm: CT at 6-12 months, then CT at 18-24 months. Page 2 of 4 [facility] [address] [place] [address] PHONE: [phone] FAX: [phone] Name .................. : MAGDY Valentin Acct Number.................. : [id number] ROOM. ................. : VT-23 MR Number ................... : [id number] Stay type ............. : E/R Discharge Date......... ... : 03/01/21 Admit Date ......... : 03/01/21 Admit Phys .................... : EMERSONNORRIS Date of ....... : 1985 Family Phys ................... : NO PCP Phone .................. : [phone] Age ................................ : 35 Film# .................. .:[id number] Sex ................................. : M Unsigned transcriptions are preliminary reports and do not represent a medical or legal document CT ABD & PELVIS W/ IV ONLY [id number] COMPLETE:03/01/21 19:24 NICOLA [id number] Reason(s): Abdominal Pain >8 mm: Consider CT at 3 months, PET/CT, or tissue sampling. Consider CT at 3 months, PET/CT, or tissue sampling. Nodules <6mm do not require routine follow up, but certain patients at high risk with suspicious nodule morphology, upper lobe location, or both may warrant 12 month follow up. Zygomatic MULTIPLE <6 mm Low Risk: No routine follow-up. High Risk: Optional CT at 12 months. >6 mm Low Risk: CT at 3-6 months, then consider CT at 18-24 months. High Risk: CT at 3-6 months, then at 18-24 months. Use most suspicious nodule as guide to management. Follow up interval may vary according to size and risk. FACTORS TO CONSIDER FOR RISK PER FLEISCHNER/ACCP: Lower: young age, less smoking, smaller nodule size, regular margins, non upper lobe location Higher: older age, heavy smoking including 30pk/yrs within 15 years of quitting, larger nodule size, irregular or spiculated margins, upper lobe location. History of inhalation exposure to asbestos, radon or uranium. Any high risk component should be considered high risk regardless of number of low risk components. SUBSOLID NODULES SINGLE GROUND GLASS: [address] [place] [address] PHONE: [phone] FAX: [phone] Name .................. : VINHBASHIRDANIE MING Valentin Acct Number.................. : [id number] ROOM. ................. : VT-23 MR Number ................... : [id number] Stay type ............. : E/R Discharge Date......... ... : 03/01/21 Admit Date ......... : 03/01/21 Admit Phys .................... : ALBERT Date of ....... : 1985 Family Phys ................... : NO PCP Phone .................. : [phone] Age ................................ : 35 Film# .................. .:[id number] Sex ................................. : M Unsigned transcriptions are preliminary reports and do not represent a medical or legal document C T ABD & PELVIS W/ IV ONLY [id number] COMPLETE:03/01/21 19:24 NICOLA [id number] Reason(s): Abdominal Pain <6 mm: No routine follow-up. > 6 mm: CT at 6-12 months, then CT every 2 years until 5 years. In certain suspicious nodules < 6mm consider follow up at 2 and 4 years. If solid components or growth develops consider resection. SINGLE PART SOLID: <6 mm: No routine follow-up. >6 mm: CT at 3-6 months. If unchanged and solid component remains <6 mm, annual CT every 5 years. In practice part solid nodules cannot be defined as such until > 6mm and less than 6 mm do not require follow up. Persistent part solid nodules with solid components > 6mm should be considered highly suspicious. MULTIPLE: <6 mm: CT at 3-6 months. If stable, consider CT at 2 and 4 years. >6 mm: CT at 3-6 months, Subsequent management based on the most suspicious nodules. Multiple < 6mm pure ground glass nodules are usually benign, but consider follow up in selected patients at high risk at 2 and 4 years. Electronically Reviewed and Signed By Eloy Verde MD , 03/02/21 09:07, SCB Transcribe Initials: ANANTH , Transcribe Date: 03/01/21 20:36, Dictation Date: Copy for: ALBERT ZHOU via fax Copy for: EMERGENCY DEPT via modem Copy for: 710 MED REC DISCHARGED Page 4 of 4 Name Value Range Interpretation Code Description Data Nicki rce(s) Supporting Document(s) ID Date Data Source [id number] 03/01/2021 06:08:00 PM EST [facility] Name Value Range Interpretation Code Description Data Nicki rce(s) Supporting Document(s) COMPREHENSIVE METABOLIC PANEL [facility] COMPREHENSIVE METABOLIC PANEL Sodium [Moles/volume] in Serum or Plasma 141 mEq/L 134 - 153 [facility] Potassium [Moles/volume] in Serum or Plasma 3.4 mEq/L 3.6 - 5.0 L [facility] Chloride [Moles/volume] in Serum or Plasma 104 mEq/L 98 - 107 [facility] Carbon dioxide, total [Moles/volume] in Serum or Plasma 23 MEQ/L 22 - 30 [facility] Glucose [Mass/volume] in Serum or Plasma 112 MG/DL 70 - 99 H [facility] BUN 9 MG/DL 7 - 21 [facility] Creatinine [Mass/volume] in Serum or Plasma 1.0 MG/DL 0.7 - 1.5 [facility] BUN/CREAT 9 8 - 27 [facility] Protein [Mass/volume] in Serum or Plasma 8.1 G/DL 6.3 - 8.2 [facility] Albumin [Mass/volume] in Serum or Plasma 4.4 G/DL 3.9 - 5.0 [facility] Globulin [Mass/volume] in Serum by calculation 3.7 GM/DL 2.4 - 3.2 H [facility] A/G RATIO 1.2 0.8 - 2.0 [facility] Calcium [Mass/volume] in Serum or Plasma 9.5 MG/DL 8.4 - 10.2 [facility] Bilirubin.total [Mass/volume] in Serum or Plasma 1.0 MG/DL 0.2 - 1.3 [facility] Alkaline phosphatase [Enzymatic activity/volume] in Serum or Plasma 102 U/L 38 - 126 [facility] Aspartate aminotransferase [Enzymatic activity/volume] in Serum or Plasma 25 U/L 5 - 40 [facility] Alanine aminotransferase [Enzymatic activity/volume] in Seru m or Plasma 26 U/L 7 - 56 [facility] Anion gap 3 in Serum or Plasma 14.0 mmol/L 8.0 - 16.0 [facility] AGE 35 yrs [facility] NON-AA GFR >60 mL/min [facility] AFR AMER GFR >60 mL/min [facility] Male GFR In terprentation 20-49 yrs >60 mL/min Normal 50-59 yrs >56 mL/min Normal 60-69 yrs >49 mL/min Normal 70-79yrs >42 mL/min Normal 80 and above >35 mL/min Normal Female GFR Interpretation 20-39 yrs >60 mL/min Normal 40-49 yrs >58 mL/min Normal 50-59 yrs >51 mL/min Normal 60-69 yrs >45 mL/min Normal 70-79 yrs >39 mL/min Normal 80 and above >32 mL/min Normal ID Date Data Source [id number] 03/01/2021 05:43:00 PM [facility] Name Value Range Interpretation Code Description Data Nicki rce(s) Supporting Document(s) Lipase [Enzymatic activity/volume] in Serum or Plasma 18 U/L 13 - 60 [facility] ID Date Data Source [id number] 03/01/2021 05:33:00 PM [facility] Name Value Range Interpretation Code Description Data Nicki rce(s) Supporting Document(s) CBC W/AUTOMATED DIFF [facility] COMPLETE BLOOD COUNT Leukocytes [#/volume] in Blood by Automated count 11.3 10^3/uL 4.2 - 11.0 H [facility] Erythrocytes [#/volume] in Blood by Automated count 4.60 10^6/uL 4. 50 - 6.30 [facility] Hemoglobin [Mass/volume] in Blood 14.8 g/dL 14.0 - 16.0 [facility] Hematocrit [Volume Fraction] of Blood by Automated count 42.3 % 4 1.0 - 51.0 [facility] Erythrocyte mean corpuscular volume [Entitic volume] by Auto mated count 92.0 fL 80.0 - 94.0 [facility] Erythrocyte mean corpuscular hemoglobin [Entitic mass] by Automated count 32.2 pg 27.0 - 34.0 [facility] Erythrocyte mean corpuscular hemoglobin concentration [Mass/volume] by Automated count 35.0 g/dL 31.0 - 36.0 [facility] Erythrocyte distribution width [Ratio] by Automated count 12.3 % 11.5 - 14.8 [facility] Platelets [#/volume] in Blood by Automated count 312 10^3/uL 150 - 45 0 [facility] Platelet mean volume [Entitic volume] in Blood by Automated count 8.7 fL 7.4 - 10.4 [facility] Neutrophils/100 leukocytes in Blood by Automated count 79.9 % 37. 0 - 80.0 [facility] Lymphocytes/100 leukocytes in Blood by Manual count 15.5 % 25.0 - 40.0 L [facility] Monocytes/100 leukocytes in Blood by Automated count 3.5 % 3.0 - 8.0 [facility] Eosinophils/100 leukocytes in Blood by Automated count 0.6 % 0.0 - 7.0 [facility] Basophils/100 leukocytes in Blood by Automated count 0.2 % 0.0 - 2.0 [facility] %IG 0.3 % 0.0 - 0.0 [facility] %NRBC 0.0 % 0.0 - 0.0 [facility] al Neutrophils [#/volume] in Blood by Automated count 9.00 10^3/uL 2.00 - 6.90 H [facility] Lymphocytes [#/volume] in Blood by Automated count 1.74 10^3/uL 0.60 - 3.40 [facility] Monocytes [#/volume] in Blood by Automated count 0.39 10^3/uL 0.00 - 0.90 [facility] Eosinophils [#/volume] in Blood by Automated count 0.07 10^3/uL 0.00 - 0.70 [facility] Basophils [#/volume] in Blood by Automated count 0.02 10^3/uL 0.00 - 0.20 [facility] #IG 0.03 10^3/uL 0.00 - 0.10 [facility] ospital #NRBC 0.00 10^3/uL 0.00 - 0.00 [facility] ospital MANUAL DIFF NOT INDICATED [facility] RBC MORPH NOT INDICATED [facility] ID Date Data Source [id number] 03/01/2021 05:24:00 PM EST [facility] Name Value Range Interpretation Code Description Data Nicki rce(s) Supporting Document(s) Lactate [Moles/volume] in Serum or Plasma 2.5 MMOL/L 0.2 - 2.2 H [facility] ID Date Data Source [id number] 03/01/2021 05:39:00 PM EST [facility] Name Value Range Interpretation Code Description Data Nicki rce(s) Supporting Document(s) UA REFLEX TO UA CULTURE [facility] UR[facility]YSIS [facility]OURCE [facility] COL[facility] yellow NORMAL: Yellow [facility] ospital CLARITY clear NORMAL: Clear [facility] Specific gravity of Urine by Test strip 1.020 1.001 - 1.030 [facility] pH 6 5 - 9 [facility] al Glucose [Mass/volume] in Urine by Test strip [facility] Bil[facility] [Presence] in Urine by Test strip NEG NORMAL: Negative [facility] Ketones [Presence] in Urine by Test strip 150 NORMAL: Negative [facility] Protein [Mass/volume] in Urine by Test strip [facility]G [facility] Nitrite [Presence] in Urine by Test strip NEG NORMAL: Negative [facility] BLOOD 150 NORMAL: Negative [facility] Leukocyte esterase [Presence] in Urine by Test strip 25 ANOOP L: Negative [facility] Urobilinogen [Mass/volume] in Urine by Test strip NOR less joseph n 1.0 mg/dL [facility] MICROSCOPIC See Below [facility] ital WBC 7 - 10 NORMAL: NONE SEEN A [facility] Erythrocytes [#/volume] in Urine by Test strip 15 - 20 NORMAL: NON E SEEN A [facility] EPITHELIAL FEW NORMAL: NONE SEEN [facility] Bacteria [Presence] in Urine sediment by Light microscopy 1+ SMALL NORMAL: NONE SEEN [facility] Mucus [Presence] in Urine sediment by Light microscopy 2+ NOR MAL: NONE SEEN A [facility] Amorphous sediment [Presence] in Urine sediment by Light delmi roscopy NONE SEEN NORMAL: NONE SEEN [facility] Casts [#/area] in Urine sediment by Microscopy low power field N ot Indicated [facility] Crystals [type] in Urine sediment by Light microscopy Not Indicated [facility] YEAST None Seen [facility] ID Date Data Source [id number] 02/15/2021 08:54:00 AM EDT [facility] [address] [place] [address] PHONE: [phone] FAX: [phone] Name .................. : MAGDY Valentin Acct Number.................. : [id number] ROOM. ................. : VT-[id number] MR Number ................... : [id number] Stay type ............. : E/R Discharge Date......... ... : 02/10/21 Admit Date ......... : 02/10/21 Admit Phys .................... : CIELO ARINA Date of ....... : 1985 Family Phys ................... : NO PCP Phone .................. : [phone] Age ................................ : 35 Film# .................. .:[id number] Sex ................................. : M Unsigned transcriptions are preliminary reports and do not represent a medical or legal document [place] [id number] COMPLETE:02/10/21 17:43 [facility] [id number] Reason(s): Pain RIBS LEFT WITH FRONTAL CHEST 5 VIEWS INDICATION: Pain. Per technologist pain mid to lower ribs with no known trauma COMPARISON: None. FINDINGS: Cardiac mediastinal and hilar structures normal. Lungs are clear. No pneumothorax or pleural effusions. No rib fracture or rib lesion. IMPRESSION: Negative exam. Electronically Reviewed and Signed By Eloy Verde MD , 02/15/21 08:54, SCB Transcribe Initials: ANANTH , Transcribe Date: 02/14/21 11:54, Dictation Date: Copy for: EMERGENCY DEPT via modem Copy for: 710 MED REC DISCHARGED Page 1 of 1 Name Value Range Interpretation Code Description Data Nicki rce(s) Supporting Document(s) ID Date Data Source [id number] 02/10/2021 04:18:00 PM EDT [facility] 1 OrderSheet [facility] Emergency Department [address] [place] [address] Phone #: [phone] apm- [phone] 02/10/2021 16:15 Patient: MING CURRAN Sex: M : 1985 Age: 35yWEIGHT:122.4 kg (S) HEIGHT:75 inches (S) BMI:33.7ALLERGIES: PenicillinsCHIEF COMPLAINT: CHESTDIAGNOSIS: Muscle strainLAB ORDERSOrder Description Priority Entered Acknowledged InitialedDIAGNOSTIC STUDY ORDERSOrder Description Priority Entered Acknowledged InitialedRibs W/PA CXR STAT 17:05 02/10/2021 17:14 Sorbreggie,Left (Oxygen?(No)) Jayden Buck R.N., M.D.; Reason for Study: PainMEDICATION/IV/DRIP/FLUID ORDERSOrder Description Priority Entered Acknowledged InitialedToradol IM 30 mg 17:05 02/10/2021 17:22 Cielo Tran Riccardo Frank R.N. M.D.;Ativan IM 1 mg 17:05 02/10/2021 17:22 Marc,(HIGH ALERT Jayden Buck R.N.MEDICATION) Carl;Tylenol 1 g PO X1 17:05 02/10/2021 17:22 Marc,dose: 1000 mg Jayden Buck R.N.(NOW x1) Carl;GENERAL ORDERSOrder Description Priority Entered Acknowledged Initialed[Electronically signed by Jayden Buck M.D. (19:09 02/10/2021)][Electronically signed by Jorge Alberto Tran R.N. (19:14 02/10/2021)][Electronically locked by Jorge Alberto Tran R.N. (19:14 02/10/2021)] Name Value Range Interpretation Code Description Data Nicki rce(s) Supporting Document(s) ID Date Data Source [id number] 02/10/2021 04:18:00 PM EDT [facility] 1 Medication Reconciliation Report [facility] Emergency Department [address] [place] [address] Phone #: ext- [phone] 02/10/2021 16:15 Patient: MING CURRAN Sex: M : 1985 Age: 35yWeight: 122.4 kgHeight/Length: 75 in.BMI: 33.7ALLERGIES: PenicillinsThe patient's Home Medications are listed below:NONE.The source(s) of the original Home Medication information:Not obtained.The following Medications were given to the patient in the Emergency Department:Tylenol [PO] PO 1000 mg, administered: 17:22 02/10/2021tivan [IM] IM 1 mg, administered: 17:02/10/2021Toradol [IM] IM 30 mg, administered: 17:02/10/2021The following Medications were prescribed to the patient:None. Name Value Range Interpretation Code Description Data Nicki rce(s) Supporting Document(s) ID Date Data Source [id number] 02/10/2021 04:18:00 PM EDT [facility] 1 Medication Administration Record [facility] Emergency Department [address] [place] [address] Phone #: ext- [phone] 02/10/2021 16:15 Patient: MING CURRAN Sex: M : 1985 Age: 35yWeight: 122.4 kgHeight/Length: 75 inBMI: 33.7ALLERGIES: Penicillins Date/Time Medication Administered Medication OrderedGiven TORADOL [IM] (KETOROLAC Toradol IM 30 mg17:02/10/2021 TROMETHAMINE)Jorge Alberto Tran R.N. Dose: 30 mg IMGiven ATIVAN [IM] (LORAZEPAM) Ativan IM 1 mg (HIGH ALERT17:02/10/2021 Dose: 1 mg IM MEDICATION)Jorge Alberto Tran R.N.Given TYLENOL [PO] (APAP) Tylenol 1 g PO X1 dose: 1000 mg17:02/10/2021 Dose: 1000 mg Tablets PO (NOW x1)Jorge Alberto Tran R.N. Name Value Range Interpretation Code Description Data Nicki rce(s) Supporting Document(s) ID Date Data Source [id number] 02/10/2021 04:18:00 PM EDT [facility] 1 General Instructions [facility] Emergency Department [address] [place] [address] Phone #: ext- [phone] 02/10/2021 16:15 Patient: MING CURRAN Sex: M : 1985 Age: 35yMuscle strain of the anterior chest wall (left).Left sided rib strain.INSTRUCTIONSApply ice for 30 minutes four times a day for two days followed by moist heat 30 minutes four times a dayfor five days. Don't apply ice directly to skin, don't use while asleep and don't use high setting on heatingpad. No strenuous activity until better. Return to work in two days.(USE TYLENOL AND/OR MOTRIN 4 TIMES PER DAY NEEDED FOR PAIN).Warnings: GENERAL WARNINGS: Return or contact your physician immediately if your conditionworsens or changes unexpectedly, if not improving as expected, or if other problems arise.SPECIFICALLY, return if you develop weakness of the foot, arm or leg, numbness, tingling, pain orincontinence of feces (loss of bowel control) or urine (loss of bladder control).Your Current Medications: .No home medication.Follow-up:Return to the emergency department as needed. Follow up with your healthcare provider in three dayseven if well. Call for an appointment. Reason for referral: evaluation and treatment. Summary of careprovided to patient via paper.Understanding of the discharge instructions verbalized by patient. Expected course of injury, dischargeinstructions, activity level, diet, follow-up appointment and risks and benefits of treatment reviewed withpatient and understanding verbalized. Agrees to plan of care. ADDITIONAL INFORMATIONMuscle Strain in the ExtremitiesA muscle strain is a stretching and tearing of muscle fibers. This causes pain, especially when youmove that muscle. There may also be some swelling and bruising.Home care Keep the hurt area raised above heart level to reduce pain and swelling. This is especially 2 General Instructions [facility] Emergency Department [address] [place] [address] Phone #: ext- [phone] 02/10/2021 16:15 Patient: MING CURRAN Sex: M : 1985 Age: 35y important during the first 48 hours. Apply an ice pack over the injured area for 15 to 20 minutes every 3 to 6 hours. You should do this for the first 24 to 48 hours. You can make an ice pack by filling a plastic bag that seals at the top with ice cubes and then wrapping it with a thin towel. Be careful not to injure your skin with the ice treatments. Ice should never be applied directly to skin. Continue the use of ice packs for relief of pain and swelling as needed. After 48 hours, carola ly heat (warm shower or warm bath) for 15 to 20 minutes several times a day, or alternate ice and heat. You may use pbde-kcb-etbibex pain medicine to control pain, unless another medicine was prescribed. If you have chronic liver or kidney disease or ever had a stomach ulcer or gastrointestinal bleeding, talk with your healthcare provider before using these medicines. For leg strains: If crutches have been recommended, don't put full weight on the hurt leg until you can do so without pain. You can return to sports when you are able to hop and run on the injured leg without pain.Follow-up careFollow up with your healthcare provider, or as advised.When to seek medical adviceCall your healthcare provider right away if any of these occur: The toes of the injured leg become swollen, cold, blue, numb, or tingly Pain or swelling increases [id number] [employer]. [address] [place] [address]. All rights reserved. This information is not intended as asubstitute for professional medical care. Always follow your healthcare professional's instructions. You have been given the following additional information: Muscle Strain, Extremity No strenuous activity until better. Return to work in two days.(Electronically signed by Jayden Buck M.D. 02/10/2021 19:09) 3 General Instructions [facility] Emergency Department [address] [place] [address] Phone #: ext- [phone] 02/10/2021 16:15 Patient: MING CURRAN Sex: M : 1985 Age: 35y Name Value Range Interpretation Code Description Data Nicki rce(s) Supporting Document(s) ID Date Data Source [id number] 02/10/2021 04:18:00 PM EDT [facility] 1 Clinical Report - Nurses [facility] Emergency Department [address] [place] [address] Phone #: ext- [phone] 02/10/2021 16:15 Patient: MING CURRAN Sex: M : 1985 Age: 35yTRIAGEArrived by private vehicle. Historian: patient. Accompanied by family. ( left rib cage and in back didhave back surgery, [facility] ct scan sent home with gas ex and it still hurts now and isworse).Acuity: LEVEL 4.Chief Complaint: BACK PAIN.Alert.This started yesterday. The patient has had trouble walking.Treatment CAD SPECIALIST:Took Tylenol. (0800, aleve 1300, val just a few mintues ago).SEPSIS SCREEN: SEPSIS SCREEN NEGATIVE. No suspected or confirmed signs of infection present.--16:27 02/10/21 Juanis Scanlon R.N.16:17 02/10/21. BP: 156/86. MAP: 109. HR: 59. RR: 18. O2 saturation: 98%. Temp: 98.2 F. Pain levelnow: 01/26. --16:27 02/10/21 Juanis Scanlon R.N.( now stated his back does not hurt but his left ribs hurt). --16:27 02/10/21 Juanis Scanlon R.N.Weight: 122.4 kg stated. Height/Length: 75 inches Per Patient. BMI: 33.7. --16:16 02/10/21 Juanis Scanlon R.N.MedicationsNone. --16:23 02/10/21 Juanis Scanlon R.N.AllergiesPenicillins. --16:23 02/10/21 Juanis Scanlon R.N.PROBLEMS:Back Injury. --16:23 02/10/21 Juanis Scanlon R.N.CVA - Cerebrovascular Accident: Onset 2004. --17:11 02/10/21 Jayden Buck M.D.The following entry was modified by Jayden Buck M.D., 17:11 02/10/21CVA - Cerebrovascular Accident. --16:23 02/10/21 Juanis Scanlon R.N..ADDITIONAL SURGERIES:no known surgeries. 2 Clinical Report - Nurses [facility] Emergency Department [address] [place] [address] Phone #: ext- [phone] 02/10/2021 16:15 Patient: MING CURRAN Sex: M : 1985 Age: 35y History PAST MEDICAL HX: Immunizations: up-to-date. SOCIAL HX: Light tobacco smoker- less than 1/2 a pack per day. Occasional alcohol use. Heavy drug use. The patient was offered HIV testing but declined and hepatitis C testing but declined. The patient has not traveled outside the [place] Infectious disease exposure: No infectious disease exposure. The patient was not exposed to Coronavirus. (has been vaccinated). Patient is not a known carrier of tuberculo sis, hepatitis, HIV, MRSA or VRE. Patient is not a known carrier of CRE. SELF HARM ASSESSMENT: Self harm assessment was performed. The patient answered "no" to the question(s) "Have you recently felt down, depressed, or hopeless?" and "Do you have thoughts of harming or killing yourself?". ABUSE ASSESSMENT: Abuse assessment. Abuse denied. No suspicion of abuse. No report of abuse. NUTRITIONAL RISK ASSESSMENT: The nutritional risk assessment revealed no deficiencies. FUNCTIONAL ASSESSMENT: Functional assessment: no impairments noted. LEARNING NEEDS ASSESSMENT: The learning needs assessment revealed no barriers. FALL RISK ASSESSMENT: Fall risk assessment completed. No risk factors identified. SKIN INTEGRITY ASSESSMENT: Skin integrity risk assessment completed. No skin int egrity risk identified. --16:27 02/10/21 Juanis Scanlon R.N. Interventions Identification band on patient. To treatment room. --16:27 02/10/21 Juanis Scanlon R.N.PHYSICAL ASTXJOKFTA13:39 02/10/21. To room via wheelchair. Patient gowned.GENERAL / NEURO / PSYCH: Alert. Oriented X 4. Appears in no acute distress.RESPIRATORY: Respirations not labored. Chest nontender. Breath sounds within normal limits.CVS: Normal heart rate and rhythm. Capillary refill less than 2 seconds.GI / : Abdomen soft and nontender. Bowel sounds within normal limits.EXTREMITIES: Sensation intact in extremities. ROM of extremities within normal limits.BACK: ( does not have back pain: has left side pain.). Normal inspection of the neck and back. LimitedROM of the back. --16:42 02/10/21 Jorge Alberto Tran R.N.NURSING PROGRESS NOTES16:39 02/10/21. Reassurance given. Two patient identifiers checked. Call light placed in reach. Siderails up x 2. Bed placed in lowest position. Brakes of bed on. Patient ready for evaluation- ED physicianparadise DIXON notified. --16:39 02/10/21 Jorge Alberto Tran R.N. 3 Clinical Report - Nurses [facility] Emergency Department [address] [place] [address] Phone #: ext- [phone] 02/10/2021 16:15 Patient: MING CURRAN Sex: M : 1985 Age: 35y 17:06 02/10/21. BP: 139/99. HR: 75. RR: 16. O2 saturation: 100%. --17:07 02/10/21 [facility] Antionette WILLAMS 17:22 02/10/2021 Tylenol (APAP) PO Tablets 1000 mg given. Allergies verified and confirmed 5 rights. Information reviewed with patient including reason for taking this medication, signs of allergic reaction and precautions. Verbalizes understanding. --17:22 02/10/21 Jorge Alberto Tran R.N. 17:22 02/10/2021 Ativan (LORazepam) IM 1 mg given. Given in the right deltoid. Allergies verified and confirmed 5 rights. Information reviewed with patient including reason for taking this medication, signs of allergic reaction, precautions and sedative warning. Verbalizes understanding. --17:22 02/10/21 Jorge Alberto Tran R.N. 17:22 02/10/2021 Toradol (Ketorolac Tromethamine) IM 30 mg given. Given in the right deltoid. Allergies verified and confirmed 5 rights. Information reviewed with patient including reason for taking this medication, signs of allergic reaction and precautions. Verbalizes understanding. --17:22 02/10/21 Jorge Alberto Tran R.N. 18:05 02/10/21. BP: 132/97. HR: 61. RR: 16. O2 saturation: 96%. --18:05 02/10/21 [facility][note 3]Suzy ER Tech1.DISPOSITION / DISCHARGE 18:45 02/10/21. BP: 131/76. HR: 72. RR: 18. O2 saturation: 100%. Temp: 98.2 F. Pain level now 0/10. --18:46 02/10/21 [facility] ClubAntionette.Locked/Released at 02/10/2021 19:14 by Jorge Alberto Tran R.N. Name Value Range Interpretation Code Description Data Nicki rce(s) Supporting Document(s) ID Date Data Source [id number] 02/10/2021 04:18:00 PM EDT [facility] 1 Clinical Report - Physicians/Mid Levels [facility] Emergency Department [address] [place] [address] Phone #: ext- [phone] 02/10/2021 16:15 Patient: MING CURRAN Sex: M : 1985 Age: 35y Time Seen: 16:57 02/10/2021; initial patient contact. Arrived- By private vehicle. Disposition decision: 18:43 02/10/2021.HISTORY OF PRESENT ILLNESS Chief Complaint: Injury to CHEST. Location of injuries- chest (left anterior ribs). The injury occurred yesterday. ( twisted after taking out garbage, came back in house and twisted body in bed). Occurred at home. The patient complains of moderate pain. No blow to the head, neck pain, loss of con sciousness or seizure. Not dazed. 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 No depression, loss of vision, difficultybreathing, nausea or bladder dysfunction. No laceration, fever or vomiting. Has not recently been ill. Allother systems reviewed and are negative.PAST HISTORYSee nurses notes. Tetanus immunization status is up-to-date. Problems: CVA - Cerebrovascular Accident. Back Pain. Back Injury. Additional Surgeries: no known surgeries. Medications: None. Allergies: Penicillins.SOCIAL HISTORYLight tobacco smoker- less than 1/2 a pack per day. Occasional alcohol use. Heavy drug use:marijuana. No recent travel.ADDITIONAL NOTESThe nursing notes have been reviewed with agreement regarding the chief complaint, HPI, ROS, PMH and 2 Clinical Report - Physicians/Mid Levels [facility] Emergency Department [address] [place] [address] Phone #: ext- [phone] 02/10/2021 16:15 Patient: MING CURRAN Sex: M : 1985 Age: 35y patient medications and allergies.PHYSICAL EXAMVital Signs: 02/10/2021 17:06 BP: 139/99. MAP: 112. HR: 75. RR: 16. O2 saturation: 100%.02/10/2021 16:17 BP: 156/86. MAP: 109. HR: 59. RR: 18. O2 saturation: 98%. Temp: 98.2 F. Pain levelnow: 01/26. Have been reviewed. Oxygen saturation normal.Appearance: Alert. Oriented X3. No acute distress.Head: Head non-tender. No swelling of head.Eyes: Pupils equal, round and reactive to light. EOM intact.ENT: No dental injury. Pharynx normal.Neck: Painless ROM. Non-tender.CVS: Heart sounds normal. Pulses normal.Respiratory: Chest wall injury: mild tenderness located in the left and anterior chest. No swelling.Painless inspiration. Breath sounds normal. (pt has diffuse pain left anterior ribs w associated lipoma leftlateral ribs for yrs).Abdomen: No visible injury. Soft and nontender. Bowel sounds normal. No organomegaly. No mass.Femoral pulses equal. Mildly obese.Back: No tenderness. ROM normal.Skin: Skin intact. Skin warm and dry. Normal skin color. Normal skin turgor.Extremities: Normal inspection. Pelvis stable. Extremities atraumatic. No lower extremity edema.Neuro: Oriented X 3. No motor deficit. No sensory deficit.LABS, X-RAYS, AND EKGSternum / Ribs X- rays: No fracture present. Normal lung markings present. Soft tissues normal. Nobony lesion present. Views: PA of sternum and left ribs. Technique: good. The X-rays were interpretedcontemporaneously by me. Interpretation time: 18:35 02/10/2021.PROGRESS AND PROCEDURESCourse of Care: 18:42 02/10/21. left rib x- rays w PA chest nml; pt feeling great, ready to go home;probable left sided rib strain, was sleeping comfortably; d/c instructions given, pt understands and agrees. Patient counseled in person regarding the patient's stable condition, test results, diagnosis and need for follow-up. Patient agrees with plan of care. Disposition: Condition: good and stable. Discharge decision based on the following: patient's condition is stable; patient's condition is improved; patient is ambulatory; patient is active; patient drinking fluids; patient eating; patient's pain is controlled; patient's exam is improved; no abnormal test results; improving condition on multiple repeat evaluations; social support is good; transportation is available; follow-up is available; clinical impression is consistent with outpatient treatment.CLINICAL IMPRESSION Muscle strain of the anterior chest wall (left). Left sided rib strain. 3 Clinical Report - Physicians/Mid Levels [facility] Emergency Department [address] [place] [address] Phone #: ext- [phone] 02/10/2021 16:15 Patient: MING CURRAN Sex: M : 1985 Age: 35yINSTRUCTIONS Apply ice for 30 minutes four times a day for two days followed by moist heat 30 minutes four times a day for five days. Don't apply ice directly to skin, don't use while asleep and don't use high setting on heating pad. No strenuous activity until better. Return to work in two days. (USE TYLENOL AND/OR MOTRIN 4 TIMES PER DAY NEEDED FOR PAIN). Warnings: GENERAL WARNINGS: Return or contact your physician immediately if your condition worsens or changes unexpectedly, if not improving as expected, or if other problems arise. SPECIFICALLY, return if you develop weakness of the foot, arm or leg, numbness, tingling, pain or incontinence of feces (loss of bowel control) or urine (loss of bladder control). Your Current Medications: . No home medication. Follow-up: Return to the emergency department as needed. Follow up with your healthcare provider in three days even if well. Call for an appointment. Reason for referral: evaluation and treatment. Summary of care provided to patient via paper. Understanding of the discharge instructions verbalized by patient. Expected course of injury, discharge instructions, activity level, diet, follow-up appointment and risks and benefits of treatment reviewed with patient and understanding verbalized. Agrees to plan of care.(Electronically signed by Jayden Buck M.D. 02/10/2021 19:09) Name Value Range Interpretation Code Description Data Nicki rce(s) Supporting Document(s) Procedure Social History Code Duration Value Status Description Data Source(s ) Smoking 12/19/2020 12:00:00 AM EDT Former Smoker completed Former Smoker eCW1 ([facility]) Smoking 12/19/2020 12:00:00 AM EDT Former Smoker completed Former Smoker eCW1 ([facility]) Smoking 10/31/2020 12:00:00 AM EDT Former Smoker completed Former Smoker eCW1 ([facility]) Vital Signs ID Date Data Source UNK Name Value Range Interpretation Code Description Data Source(s) Body weight 291.8 [lb_av] 291.8 [lb_av] eCW1 ([facility]) Body weight 132.36 kg 132.36 kg eCW1 ([facility]) Body height 75 [in_i] 75 [in_i] eCW1 ([facility]) Body mass index (BMI) [Ratio] 36.47 kg/m2 36.47 kg/m2 W1 ([facility]) Heart rate 96 /min 96 /min eCW1 ([facility]) Respiratory rate 18 /min 18 /min W1 ([facility]) Body temperature 97.5 [degF] 97.5 [degF] eCW1 ( [facility]) Systolic blood pressure 116 mm[Hg] 116 mm[Hg] e CW1 ([facility]) Diastolic blood pressure 72 mm[Hg] 72 mm[Hg] eCW1 ([facility]) Body height 75 [in_i] 75 [in_i] MEDENT ([facility] 6'3" Body weight 309.00 [lb_av] 309.00 [lb_av] MEDEN T ([facility] Systolic blood pressure 120 mm[Hg] 120 mm[Hg] M EDENT ([facility] Diastolic blood pressure 80 mm[Hg] 80 mm[Hg] MEDENT ([facility] Heart rate 77 /min 77 /min MEDENT ([facility] Body mass index (BMI) [Ratio] 38.6 kg/m2 38.6 k g/m2 MEDENT ([facility] Heart rate 82 /min 82 /min eCW1 ([facility]) Body weight 309 [lb_av] 309 [lb_av] eCW1 ([facility]) Body height 75 [in_i] 75 [in_i] eCW1 ([facility]) Body mass index (BMI) [Ratio] 38.62 kg/m2 38.62 kg/m2 eCW1 ([facility]) Respiratory rate 18 /min 18 /min eCW1 ([facility]) Body temperature 97.2 [degF] 97.2 [degF] eCW1 ( [facility]) Systolic blood pressure 118 mm[Hg] 118 mm[Hg] e CW1 ([facility]) Diastolic blood pressure 70 mm[Hg] 70 mm[Hg] eCW1 ([facility]) Body weight 257.00 [lb_av] 257.00 [lb_av] MEDEN T ([facility]) Diastolic blood pressure 80 mm[Hg] 80 mm[Hg] MEDENT ([facility]) Respiratory rate 18 /min 18 /min MEDENT ( [facility]) Body temperature 98.7 [degF] 98.7 [degF] MEDENT ([facility]) Body weight 196.00 [lb_av] 196.00 [lb_av] MEDEN T ([facility]) Heart rate 80 /min 80 /min MEDENT ([facility]) Systolic blood pressure 142 mm[Hg] 142 mm[Hg] M EDENT ([facility]) Patient Treatment Plan of Care Planned Activity Planned Date Details Description Data Source (s) Clobetasol Propionate 0.5 MG/ML Topical Solution 12/30/2020 12:00:0 0 AM EDT eCW1 ([facility]) Clobetasol Propionate 0.5 MG/ML Topical Solution 12/30/2020 12:00:0 0 AM EDT eCW1 ([facility]) tizanidine 2 MG Oral Tablet 12/19/2020 12:00:00 AM EDT eCW1 ([facility]) Ergocalciferol [id number] UNT Oral Capsule 12/19/2020 12:00:00 AM EDT eCW1 ([facility]) doxycycline hyclate 100 MG Oral Tablet 12/19/2020 12:00:00 AM EDT eCW1 ([facility]) Clobetasol Propionate 0.5 MG/ML Medicated Shampoo 12/19/2020 12: 00:00 AM EDT eCW1 ([facility]) tizanidine 2 MG Oral Tablet 12/19/2020 12:00:00 AM EDT eCW1 ([facility]) Ergocalciferol 10944 UNT Oral Capsule 12/19/2020 12:00:00 AM EDT eCW1 ([facility]) doxycycline hyclate 100 MG Oral Tablet 12/19/2020 12:00:00 AM EDT eCW1 ([facility]) Clobetasol Propionate 0.5 MG/ML Medicated Shampoo 12/19/2020 12: 00:00 AM EDT eCW1 ([facility])
[2021-03-03] MEDS ORDERED: METO10TA2 (18:50)
[2021-03-03] MEDS ORDERED: CLOB0.057 (18:50)
[2021-03-03] MEDS ORDERED: DOXY100T (18:50)
[2021-03-03] MEDS ORDERED: CEFD1CAP8 (18:50)
[2021-03-03] MEDS ORDERED: IBUP80TA (18:50)
[2021-03-03] MEDS ORDERED: LIDO1ADH10 (18:50)
[2021-03-03] MEDS ORDERED: ERGO500029 (18:50)
[2021-03-03 22:34] VITALS: BP 159/78
[2021-03-03 22:39] LABS: BASO % 0.2 % (0.0-1.0); EOS # 0.1 10^3/uL (0.0-0.5); EOS % 0.5 % (0.0-3.0); HEMATOCRIT 42.4 % (42.0-52.0); HEMOGLOBIN 14.8 g/dl (13.5-17.5); LYMPH % 22.7 % (24.0-44.0); MEAN CORPUSCULAR HEMOGLOBIN 31.8 pg (27.0-33.0); MEAN CORPUSCULAR HGB CONC 34.9 g/dl (32.0-36.5); MONO % 7.3 % (2.0-8.0); NEUTROPHILS # 9.2 10^3/uL (1.5-8.5); NEUTROPHILS % 69.1 % (36.0-66.0); PLATELET COUNT, AUTOMATED 295 10^3/uL (150-450); RED BLOOD COUNT 4.66 10^6/uL (4.30-6.10); WHITE BLOOD COUNT 13.3 10^3/uL (4.0-10.0)
[2021-03-03 23:19] LABS: ALBUMIN 3.5 GM/DL (3.2-5.2); ALT/SGPT 32 U/L (12-78); BILIRUBIN,DIRECT 0.3 MG/DL (0.0-0.2); BILIRUBIN,TOTAL 1.4 MG/DL (0.2-1.0); BLOOD UREA NITROGEN 7 MG/DL (7-18); CARBON DIOXIDE LEVEL 25 MEQ/L (21-32); CHLORIDE LEVEL 108 MEQ/L (98-107); CREATININE FOR GFR 0.87 MG/DL (0.70-1.30); GLOMERULAR FILTRATION RATE > 60.0 (>60); GLUCOSE, FASTING 100 MG/DL (70-100); LIPASE 72 U/L (73-393); POTASSIUM SERUM 3.5 MEQ/L (3.5-5.1); SODIUM LEVEL 140 MEQ/L (136-145); TOTAL PROTEIN 7.5 GM/DL (6.4-8.2)
--- OUTSIDE RECORDS SUMMARY | 2021-03-04 00:11 | CCD ---
Author Author [facility] Organization [facility] Address Unknown Phone Unavailable Care Team Providers Care Final Tester Name Role Phone NO, PCP Unavailable Unavailable [...] is protected by Article 27-F of the [place] State Public Health law. If you continue you may have access to information: Regarding HIV / AIDS; Provided by facilities licensed or operated by the [facility] Office of Mental Health; or Provided by the [facility] Office for People With Developmental Disabilities. If such information is present, then the following [facility] mandated warning applies: This information has [...] law may result in a fine or group home sentence or both. A general authorization for the release of medical or other information is NOT sufficient authorization for further disc losure. Encounters Encounter Providers Location Date Indications Data Source(s ) Emergency Attender: Chris Barnett PAConsultant: PCP NO 03/01/2021 04:45:00 PM EST - 03/01/2021 07:11:00 PM EST [facility] Patient discharged. Emergency Attender: JAYDEN BUCKConsultant: PCP NO 02/10/2021 04:18:00 PM EDT - 02/10/2021 07:04:00 PM EDT [facility] Patient discharged. Outpatient [address] [id number] 12/19/2020 12:00:00 AM EDT eCW1 ([facility]) Unknown [address] [id number] 12/19/2020 12:00:00 AM EDT eCW1 ([facility]) Outpatient Attender: GM DONNELLY [facility] Office 10/18 09:30:00 AM EDT [facility] ([facility] Outpatient [address] [id number] 10/31/2020 12:00:00 AM EDT eCW1 ([facility]) Outpatient Attender: GM DONNELLY [facility] Office 01/18 08:15:00 AM EDT [facility] ([facility] Unknown [address] [id number] 01/29/2020 12:00:00 AM EDT eCW1 ([facility]) Immunizations Vaccine Date Status Description Data Source(s) COVID-19 VACCINE Pablo 08/01/2020 12:00:00 AM EDT completed [facility] Vaccine Series Complete: YESThis Data wa s Submitted to [facility] Via [employer]. Medications Medication Brand Name Start Date Product Form Dose Route Admi nistrative Instructions Pharmacy Instructions Status Indications Reaction Description Data Source(s) Clobetasol Propionate 0.5 MG/ML Topical Solution Clobe tasol Propionate 0.05 % Clobetasol Propionate 0.05 % 12/30/2020 12:00:00 AM EDT 1.0 {applicat ion} active Clobetasol Propionate 0.05 % eCW1 ([facility]) Clobetasol Propionate 0.5 MG/ML Topical Solution Clobe tasol Propionate 0.05 % Clobetasol Propionate 0.05 % 12/30/2020 12:00:00 AM EDT 1.0 {applicat ion} active Clobetasol Propionate 0.05 % eCW1 ([facility]) Clobetasol Propionate 0.5 MG/ML Medicated Shampoo Clob etasol Propionate 0.05 % Clobetasol Propionate 0.05 % 12/19/2020 12:00:00 AM EDT 1.0 {applicat ion} active Clobetasol Propionate 0.05 % eCW1 ([facility]) tizanidine 2 MG Oral Tablet tiZANidine HCl 2 MG tiZANidine H Cl 2 MG 12/19/2020 12:00:00 AM EDT active tiZANidi ne HCl 2 MG eCW1 ([facility]) doxycycline hyclate 100 MG Oral Tablet Doxycycline Hyc late 100 MG Doxycycline Hyclate 100 MG 12/19/2020 12:00:00 AM EDT 1.0 {tablet} active Doxycycline Hyclate 100 MG eCW1 ([facility]) Ergocalciferol 35507 UNT Oral Capsule Ergocalciferol 1 .25 MG (43278 UT) Ergocalciferol 1.25 MG (49929 UT) 12/19/2020 12:00:00 AM EDT 1.0 {c apsule} active Ergocalciferol 1.25 MG (5 0000 UT) eCW1 ([facility]) Clobetasol Propionate 0.5 MG/ML Medicated Shampoo Clob etasol Propionate 0.05 % Clobetasol Propionate 0.05 % 12/19/2020 12:00:00 AM EDT 1.0 {applicat ion} active Clobetasol Propionate 0.05 % eCW1 ([facility]) tizanidine 2 MG Oral Tablet tiZANidine HCl 2 MG tiZANidine H Cl 2 MG 12/19/2020 12:00:00 AM EDT active tiZANidi ne HCl 2 MG eCW1 ([facility]) doxycycline hyclate 100 MG Oral Tablet Doxycycline Hyc late 100 MG Doxycycline Hyclate 100 MG 12/19/2020 12:00:00 AM EDT 1.0 {tablet} active Doxycycline Hyclate 100 MG eCW1 ([facility]) Ergocalciferol 08830 UNT Oral Capsule Ergocalciferol 1 .25 MG (38589 UT) Ergocalciferol 1.25 MG (17226 UT) 12/19/2020 12:00:00 AM EDT 1.0 {c apsule} active Ergocalciferol 1.25 MG (5 0000 UT) eCW1 ([facility]) Clindamycin 300 MG Oral Capsule Clindamycin HCL 04/23/2020 12:00:00 A M EST ORAL completed [facility] ([facility]) No Active Medications 04/08/2020 12:00:00 AM EST completed [facility] ([facility]) Hydrocortisone 10 MG/ML Topical Cream Hydrocortisone 04/08/2020 12:00:00 AM EST active [facility] ( [facility]) Doxycycline Monohydrate 100 MG Oral Capsule Doxycycline Gallia hydrate 03/19/2020 12:00:00 AM EST completed [facility] ([facility]) Insurance Providers Payer name Policy type / Coverage type Policy ID Covered republican ID Covered republican's relationship to friedman Policy Friedman Plan Information [place] F [id number] SELF 7 [id number] [place] [id number] 18 [id number] [place] [id number] S [id number] MEDICAID [id number] SP [id number] SELF PAY ONLY [id number] SP [id number] O U[facility]VAILABLE [facility]) O [id number] S [id number] [facility] [id number] SP [id number] MEDICAID P [id number] S [id number] MEDICAID P [id number] S [id number] AQU[place] [id number] SP [id number] Problems, Conditions, and Diagnoses Code Display Name Description Problem Type Effective Dates Data Source(s) E33001 [address] in unspeci fied non-institutional (private) residence as the place of occurrence of the external cause Unspecified place in unspecified non-institutional (private) residence as the place of occurrence of the external cause Diagnosis 02/10/2021 04:18:00 PM EDT [facility] [id number] Overexertion from prolonged static or awkward postures, initial encounter Overexertion from prolonged static or aw kward postures, initial encounter Diagnosis 02/10/2021 04:18:00 PM EDT [facility] Z8673 Personal history of transien t ischemic attack (TIA), 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 (TIA), and cerebral infarction without residual deficits Diagnosis 02/10/2021 04:18:00 PM EDT [facility] Z6833 Body mass index [BMI] 33.0-33.9, adult B lucia mass index [BMI] 33.0-33.9, adult Diagnosis 02/10/2021 04:18:00 PM EDT [facility] E669 Obesity, unspecified Obesity, unspecified Diagnosis 02/10/2021 04:18:00 PM EDT [facility] L35290 Nicotine dependence, cigarettes, uncompl icated Nicotine dependence, cigarettes, uncomplicated Diagnosis 02/10/2021 04:18:00 PM EDT [facility] [id number] Strain of muscle and tendon of front wal l of thorax, initial encounter Strain of muscle and tendon of front wall of thorax, initial encounter Diagnosis 02/10/2021 04:18:00 PM EDT [facility] [id number] Unspecified injury of thorax, initial en counter Unspecified injury of thorax, initial encounter Diagnosis 02/10/2021 04:18:00 PM EDT [facility] E55.9 [id number] Vitamin D deficiency Problem 12/19/2020 12:0 0:00 AM EDT eCW1 ([facility]) Surgeries/Procedures Procedure Description Date Indications Data Source(s) OFFICE OUTPATIENT VISIT 15 MINUTES 11/05/2020 12:00:00 AM EDT [facility] ([facility] Results ID Date Data Source [id number] 03/02/2021 09:07:00 AM EST [facility] [address] [place] [address] PHONE: [phone] FAX: [phone] Name .................. : MAGDY MING Homero Acct Number.................. : [id number] ROOM. ................. : [facility] MR Number ................... : [id number] Stay type ............. : E/R Discharge Date......... ... : 03/01/21 Admit Date ......... : 03/01/21 Admit Phys .................... : ALBERT Date of ....... : 1985 Family Phys ................... : NO PCP Phone .................. : [phone] Age ................................ : 35 Film# .................. .:[id number] Sex ................................. : M Unsigned transcriptions are preliminary reports and do not represent a medical or legal document CT ABD & PELVIS W/ IV ONLY [id number] COMPLETE:03/01/21 19:24 NICOLA 06462 Reason(s): Abdominal Pain CT ABDOMEN AND PELVIS [...] No colitis. Bowel Page 1 of 4 [facility] [address] [place] [address] PHONE: [phone] FAX: [phone] Name .................. : MAGDY Valentin Acct Number.................. : [id number] ROOM. ................. : VT-23 MR Number ................... : [id number] Stay type ............. : E/R Discharge Date......... ... : 03/01/21 Admit Date ......... : 03/01/21 Admit Phys .................... : ALBERT Date of ....... : 1985 Family Phys ................... : NO PCP Phone .................. : [phone] Age ................................ : 35 Film# .................. .:[id number] Sex ................................. : M Unsigned transcriptions are preliminary reports and do not represent a medical or legal document CT ABD & PELVIS W/ IV ONLY [id number] COMPLETE:03/01/21 19:24 NICOLA 06819 Reason(s): Abdominal Pain detail in the midabdomen [...] at 18-24 months. Page 2 of 4 [facility] [address] [place] [address] PHONE: [phone] FAX: [phone] Name .................. : MAGDY Valentin Acct Number.................. : [id number] [facility] Number ................... : [id number] Stay type ............. : E/R Discharge Date......... ... : 03/01/21 Admit Date ......... : 03/01/21 Admit Phys .................... : ALBERT Date of ....... : 1985 Family Phys ................... : NO PCP Phone .................. : [phone] Age ................................ : 35 Film# .................. .:[id number] Sex ................................. : M Unsigned transcriptions are preliminary reports and do not represent a medical or legal document CT ABD & PELVIS W/ IV ONLY [id number] COMPLETE:03/01/21 19:24 NICOLA 61649 Reason(s): Abdominal Pain >8 mm: Consider CT [...] SINGLE GROUND GLASS: Page 3 of 4 [facility] [address] [place] [address] PHONE: [phone] FAX: [phone] Name .................. : MAGDY Valentin Acct Number.................. : [id number] ROOM. ................. : VT-23 MR Number ................... : [id number] Stay type ............. : E/R Discharge Date......... ... : 03/01/21 Admit Date ......... : 03/01/21 Admit Phys .................... : ALBERT Date of ....... : 1985 Family Phys ................... : NO PCP Phone .................. : [phone] Age ................................ : 35 Film# .................. .:[id number] Sex ................................. : M Unsigned transcriptions are preliminary reports and do not represent a medical or legal document C T ABD & PELVIS W/ IV ONLY [id number] COMPLETE:03/01/21 19:24 NICOLA [id number] Reason(s): Abdominal Pain <6 mm: No routine [...] By Eloy Verde MD , 03/02/21 09:07, ANUM Transcribe Initials: ANANTH , Transcribe Date: 03/01/21 20:36, Dictation Date: Copy for: ALBERT ZHOU via fax Copy for: EMERGENCY DEPT via modem Copy for: 710 MED REC DISCHARGED Page 4 of 4 Name Value Range Interpretation Code Description Data Nicki rce(s) Supporting Document(s) ID Date Data Source [id number] 03/01/2021 06:08:00 PM EST [facility] Name Value Range Interpretation Code Description Data Nicki rce(s) Supporting Document(s) COMPREHENSIVE METABOLIC PANEL [facility] COMPREHENSIVE METABOLIC PANEL Sodium [Moles/volume] in Serum or Plasma 141 mEq/L 134 - 153 [facility] Potassium [Moles/volume] in Serum or Plasma 3.4 mEq/L 3.6 - 5.0 L [facility] Chloride [Moles/volume] in Serum or Plasma 104 mEq/L 98 - 107 [facility] Carbon dioxide, total [Moles/volume] in Serum or Plasma 23 MEQ/L 22 - 30 [facility] Glucose [Mass/volume] in Serum or Plasma 112 MG/DL 70 - 99 H [facility] BUN 9 MG/DL 7 - 21 [facility] Creatinine [Mass/volume] in Serum or Plasma 1.0 MG/DL 0.7 - 1.5 [facility] BUN/CREAT 9 8 - 27 [facility] Protein [Mass/volume] in Serum or Plasma 8.1 G/DL 6.3 - 8.2 [facility] Albumin [Mass/volume] in Serum or Plasma 4.4 G/DL 3.9 - 5.0 [facility] Globulin [Mass/volume] in Serum by calculation 3.7 GM/DL 2.4 - 3.2 H [facility] A/G RATIO 1.2 0.8 - 2.0 [facility] Calcium [Mass/volume] in Serum or Plasma 9.5 MG/DL 8.4 - 10.2 [facility] Bilirubin.total [Mass/volume] in Serum or Plasma 1.0 MG/DL 0.2 - 1.3 [facility] Alkaline phosphatase [Enzymatic activity/volume] in Serum or Plasma 102 U/L 38 - 126 [facility] Aspartate aminotransferase [Enzymatic activity/volume] in Serum or Plasma 25 U/L 5 - 40 [facility] Alanine aminotransferase [Enzymatic activity/volume] in Seru m or Plasma 26 U/L 7 - 56 [facility] Anion gap 3 in Serum or Plasma 14.0 mmol/L 8.0 - 16.0 [facility] AGE 35 yrs [facility] al NON-AA GFR >60 mL/min [facility] ital AFR AMER GFR >60 mL/min [facility] Male GFR In terprentation [...] >32 mL/min Normal ID Date Data Source [id number] 03/01/2021 05:43:00 PM [facility] Name Value Range Interpretation Code Description Data Nicki rce(s) Supporting Document(s) Lipase [Enzymatic activity/volume] in Serum or Plasma 18 U/L 13 - 60 [facility] ID Date Data Source [id number] 03/01/2021 05:33:00 PM [facility] Name Value Range Interpretation Code Description Data Nicki rce(s) Supporting Document(s) CBC W/AUTOMATED DIFF [facility] COMPLETE BLOOD COUNT Leukocytes [#/volume] in Blood by Automated count 11.3 10^3/uL 4.2 - 11.0 H [facility] Erythrocytes [#/volume] in Blood by Automated count 4.60 10^6/uL 4. 50 - 6.30 [facility] Hemoglobin [Mass/volume] in Blood 14.8 g/dL 14.0 - 16.0 [facility] Hematocrit [Volume Fraction] of Blood by Automated count 42.3 % 4 1.0 - 51.0 [facility] Erythrocyte mean corpuscular volume [Entitic volume] by Auto mated count 92.0 fL 80.0 - 94.0 [facility] Erythrocyte mean corpuscular hemoglobin [Entitic mass] by Automated count 32.2 pg 27.0 - 34.0 [facility] Erythrocyte mean corpuscular hemoglobin concentration [Mass/volume] by Automated count 35.0 g/dL 31.0 - 36.0 [facility] Erythrocyte distribution width [Ratio] by Automated count 12.3 % 11.5 - 14.8 [facility] Platelets [#/volume] in Blood by Automated count 312 10^3/uL 150 - 45 0 [facility] Platelet mean volume [Entitic volume] in Blood by Automated count 8.7 fL 7.4 - 10.4 [facility] Neutrophils/100 leukocytes in Blood by Automated count 79.9 % 37. 0 - 80.0 [facility] Lymphocytes/100 leukocytes in Blood by Manual count 15.5 % 25.0 - 40.0 L [facility] Monocytes/100 leukocytes in Blood by Automated count 3.5 % 3.0 - 8.0 [facility] Eosinophils/100 leukocytes in Blood by Automated count 0.6 % 0.0 - 7.0 [facility] Basophils/100 leukocytes in Blood by Automated count 0.2 % 0.0 - 2.0 [facility] %IG 0.3 % 0.0 - 0.0 [facility] %NRBC 0.0 % 0.0 - 0.0 [facility] al Neutrophils [#/volume] in Blood by Automated count 9.00 10^3/uL 2.00 - 6.90 H [facility] Lymphocytes [#/volume] in Blood by Automated count 1.74 10^3/uL 0.60 - 3.40 [facility] Monocytes [#/volume] in Blood by Automated count 0.39 10^3/uL 0.00 - 0.90 [facility] Eosinophils [#/volume] in Blood by Automated count 0.07 10^3/uL 0.00 - 0.70 [facility] Basophils [#/volume] in Blood by Automated count 0.02 10^3/uL 0.00 - 0.20 [facility] #IG 0.03 10^3/uL 0.00 - 0.10 [facility] ospital #NRBC 0.00 10^3/uL 0.00 - 0.00 [facility]spital MANUAL DIFF NOT INDICATED [facility] RBC MORPH NOT INDICATED [facility] ID Date Data Source [id number] 03/01/2021 05:24:00 PM EST [facility] Name Value Range Interpretation Code Description Data Nicki rce(s) Supporting Document(s) Lactate [Moles/volume] in Serum or Plasma 2.5 MMOL/L 0.2 - 2.2 H [facility] ID Date Data Source [id number] 03/01/2021 05:39:00 PM EST [facility] Name Value Range Interpretation Code Description Data Nicki rce(s) Supporting Document(s) UA REFLEX TO UA CULTURE [facility] URINALYSIS SOURCE R [facility] COLOR yellow NORMAL: Yellow [facility] CLARITY clear NORMAL: Clear [facility] Specific gravity of Urine by Test strip 1.020 1.001 - 1.030 [facility] pH 6 5 - 9 [facility] al Glucose [Mass/volume] in Urine by Test strip NORM NORMAL: Negat [facility] Bilirubin.total [Presence] in Urine by Test strip NEG NORMAL: Negative [facility] Ketones [Presence] in Urine by Test strip 150 NORMAL: Negative [facility] Protein [Mass/volume] in Urine by Test strip [facility] Nit[facility] [Presence] in Urine by Test strip NEG NORMAL: Negative [facility] BLOOD 150 NORMAL: Negative [facility] Leukocyte esterase [Presence] in Urine by Test strip 25 ANOOP L: Negative [facility] Urobilinogen [Mass/volume] in Urine by Test strip NOR less joseph n 1.0 mg/dL [facility] MICROSCOPIC See Below [facility] ital WBC 7 - 10 NORMAL: NONE SEEN A [facility] Erythrocytes [#/volume] in Urine by Test strip 15 - 20 NORMAL: NON E SEEN A [facility] EPITHELIAL FEW NORMAL: NONE SEEN [facility] Bacteria [Presence] in Urine sediment by Light microscopy 1+ SMALL NORMAL: NONE SEEN [facility] Mucus [Presence] in Urine sediment by Light microscopy 2+ NOR MAL: NONE SEEN A [facility] Amorphous sediment [Presence] in Urine sediment by Light delmi roscopy NONE SEEN NORMAL: NONE SEEN [facility] Casts [#/area] in Urine sediment by Microscopy low power field N ot Indicated [facility] Crystals [type] in Urine sediment by Light microscopy Not Indicated [facility] YEAST None Seen [facility] al ID Date Data Source [id number] 02/15/2021 08:54:00 [place] [address] PHONE: [phone] FAX: [phone] Name .................. : MAGDY Valentin Acct Number.................. : [id number] ROOM. ................. : [address] Number ................... : [id number] Stay type ............. : E/R Discharge Date......... ... : 02/10/21 Admit Date ......... : 02/10/21 Admit Phys .................... : CIELO SANTA Date of ....... : 1985 Family Phys ................... : NO PCP Phone .................. : [phone] Age ................................ : 35 Film# .................. .:[id number] Sex ................................. : M Unsigned transcriptions are preliminary reports and do not represent a medical or legal document RIBLion LOVELL W/[place] [id number] COMPLETE:02/10/21 17:43 [facility] [address] Reason(s): Pain RIBS LEFT WITH FRONTAL CHEST 5 VIEWS INDICATION: Pain. Per technologist pain mid to lower ribs with no known trauma COMPARISON: None. FINDINGS: Cardiac mediastinal and hilar structures normal. Lungs are clear. No pneumothorax or pleural effusions. No rib fracture or rib lesion. IMPRESSION: Negative exam. Electronically Reviewed and Signed By Eloy Verde MD , 02/15/21 08:54, ANUM Transcribe Initials: ANANTH , Transcribe Date: 02/14/21 11:54, Dictation Date: Copy for: EMERGENCY DEPT via modem Copy for: 710 MED REC DISCHARGED Page 1 of 1 Name Value Range Interpretation Code Description Data Nicki rce(s) Supporting Document(s) ID Date Data Source [id number] 02/10/2021 04:18:00 PM EDT [facility] 1 OrderSheet [facility] Emergency Department [address] [place] [address] Phone #: [phone] 02/10/2021 16:15 Patient: MING CURRAN Sex: M : 1985 Age: 35yWEIGHT:122.4 kg (S) HEIGHT:75 inches (S) BMI:33.7ALLERGIES: PenicillinsCHIEF COMPLAINT: CHESTDIAGNOSIS: Muscle strainLAB ORDERSOrder Description Priority Entered Acknowledged InitialedDIAGNOSTIC STUDY ORDERSOrder Description Priority Entered Acknowledged InitialedRibs W/PA CXR STAT 17:05 02/10/2021 17:14 Sorbero,Left (Oxygen?(No)) Jayden BuckNMatt M.DMatt; Reason for Study: PainMEDICATION/IV/DRIP/FLUID ORDERSOrder Description Priority Entered Acknowledged InitialedToradol IM 30 mg 17:05 02/10/2021 17:22 Cielo Tran Riccardo Frank R.NMatt M.DMatt;Ativan IM 1 mg 17:05 02/10/2021 17:22 Marc,(HIGH [...] rce(s) Supporting Document(s) ID Date Data Source [id number] 02/10/2021 04:18:00 PM EDT [facility] 1 Medication Reconciliation Report [facility] Emergency Department [address] [place] [address] Phone #: [phone] 02/10/2021 16:15 Patient: MING CURRAN Sex: M : 1985 Age: 35yWeight: 122.4 kgHeight/Length: 75 in.BMI: 33.7ALLERGIES: PenicillinsThe patient's Home Medications are listed below:NONE.The source(s) of the original Home Medication information:Not obtained.The following Medications were given to the patient in the Emergency Department:Tylenol [PO] PO 1000 mg, administered: 17:02/10/2021tivan [IM] IM 1 mg, administered: 17:22 02/10/2021Toradol [IM] IM 30 mg, administered: 17:22 02/10/2021The following Medications were prescribed to the patient:None. Name Value Range Interpretation Code Description Data Nicki rce(s) Supporting Document(s) ID Date Data Source [id number] 02/10/2021 04:18:00 PM EDT [facility] 1 Medication Administration Record [facility] Emergency Department [address] [place] [address] Phone #: [phone] 02/10/2021 16:15 Patient: [...] rce(s) Supporting Document(s) ID Date Data Source [id number] 02/10/2021 04:18:00 PM EDT [facility] 1 General Instructions [facility] Emergency Department [address] [place] [address] Phone #: [phone] 02/10/2021 16:15 Patient: [...] swelling. This is especially 2 General Instructions [facility] Emergency Department [address] [place] [address] Phone #: [phone] 02/10/2021 16:15 Patient: [...] alternate ice and heat. You may use [id number] pain medicine to control pain, unless another [...] numb, or tingly Pain or swelling increases [id number] [employer]. [address] [place] [address]. All rights reserved. This information is not intended as asubstitute for professional medical care. Always follow your healthcare professional's instructions. You have been given the following additional information: Muscle Strain, Extremity No strenuous activity until better. Return to work in two days.(Electronically signed by Jayden Buck M.D. 02/10/2021 19:09) 3 General Instructions [facility] Emergency Department [address] [place] [address] Phone #: ext- [phone] 02/10/2021 16:15 Patient: MING CURRAN Sex: M : 1985 Age: 35y Name Value Range Interpretation Code Description Data Nicki rce(s) Supporting Document(s) ID Date Data Source [id number] 02/10/2021 04:18:00 PM EDT [facility] 1 Clinical Report - Nurses [facility] Emergency Department [address] [place] [address], [place] [address] Phone #: ext- [phone] 02/10/2021 16:15 Patient: MING CURRAN Sex: M : 1985 Age: 35yTRIAGEArrived by private vehicle. Historian: patient. Accompanied by family. ( left rib cage and in back didhave back surgery, [facility] ct scan sent home with gas ex and it still hurts now and isworse).Acuity: LEVEL 4.Chief Complaint: BACK PAIN.Alert.This started yesterday. 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 (0800, aleve 1300, val just a few mintues ago).SEPSIS SCREEN: SEPSIS SCREEN NEGATIVE. No suspected or confirmed signs of infection present.--16:27 02/10/21 uJanis Scanlon R.N.16:17 02/10/21. BP: 156/86. MAP: 109. [...] Cerebrovascular Accident: Onset 2004. --17:11 02/10/21 Jayden Bukc M.D.The following entry was modified by Jayden Buck M.D., 17:11 02/10/21CVA - Cerebrovascular Accident. --16:23 02/10/21 Juanis Scanlon R.N..ADDITIONAL SURGERIES:no known surgeries. 2 Clinical Report - Nurses [facility] Emergency Department [address] [place] [address] Phone #: ext- [phone] 02/10/2021 16:15 Patient: MING CURRAN Sex: M [...] No skin int egrity risk identified. --16:27 10/25/21 Juanis Scanlon R.N. Interventions Identification band on patient. To treatment room. --16:27 02/10/21 Juanis Scanlon R.N.PHYSICAL [id number] 02/10/21. To room via wheelchair. Patient gowned.GENERAL [...] Tran R.N. 3 Clinical Report - Nurses [facility] Emergency Department [address] [place] [address] Phone #: ext- [phone] 02/10/2021 16:15 Patient: MING CURRAN Sex: M : 1985 Age: 35y 17:06 02/10/21. BP: 139/99. HR: 75. RR: 16. O2 saturation: 100%. --17:07 02/10/21 Claire WILLAMSAntionette 17:22 02/10/2021 Tylenol (APAP) PO Tablets 1000 [...] RR: 16. O2 saturation: 96%. --18:05 [facility]/10[facility]21 [facility]DISPOSITION / DISCHARGE 18:45 02/10/21. BP: 131/76. HR: 72. RR: 18. O2 saturation: 100%. Temp: 98.2 F. Pain level now 0/10. --18:46 02/10/21 [facility] Antionette.Locked/Released at 02/10/2021 19:14 by Jorge Alberto Tran R.N. Name Value Range Interpretation Code Description Data Nicki rce(s) Supporting Document(s) ID Date Data Source [id number] 02/10/2021 04:18:00 PM EDT [facility] 1 Clinical Report - Physicians/Mid Levels [facility] Emergency Department [address] [place] [address] Phone #: ext- [phone] 02/10/2021 16:15 [id number] Sex[facility] M : 1985 Age: 35y Time [...] seizure. Not dazed. 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 3 Clinical Report - Physicians/Mid Levels [facility] Emergency Department [address] [place] [address] Phone #: ext- [phone] 02/10/2021 16:15 Patient: [...] EDT Former Smoker completed Former Smoker eCW1 ([facility]) Smoking 12/19/2020 12:00:00 AM EDT Former Smoker completed Former Smoker eCW1 ([facility]) Smoking 10/31/2020 12:00:00 AM EDT Former Smoker completed Former Smoker eCW1 ([facility]) Vital Signs ID Date Data Source UNK Name Value Range Interpretation Code Description Data Source(s) Diastolic blood pressure 72 mm[Hg] 72 mm[Hg] eCW1 ([facility]) Body weight 291.8 [lb_av] 291.8 [lb_av] eCW1 ([facility]) Body weight 132.36 kg 132.36 kg W1 ([facility]) Body height 75 [in_i] 75 [in_i] eCW1 ([facility]) Body mass index (BMI) [Ratio] 36.47 kg/m2 36.47 kg/m2 eCW1 ([facility]) Heart rate 96 /min 96 /min eCW1 ([facility]) Respiratory rate 18 /min 18 /min eCW1 ([facility]) Body temperature 97.5 [degF] 97.5 [degF] eCW1 ( [facility]) Systolic blood pressure 116 mm[Hg] 116 mm[Hg] e CW1 ([facility]) Body weight 309.00 [lb_av] 309.00 [lb_av] MEDEN T ([facility] Body height 75 [in_i] 75 [in_i] MEDENT ([facility] 6'3" Systolic blood pressure 120 mm[Hg] 120 mm[Hg] M EDENT ([facility] Diastolic blood pressure 80 mm[Hg] 80 mm[Hg] MEDENT ([facility] Heart rate 77 /min 77 /min MEDENT ([facility] Body mass index (BMI) [Ratio] 38.6 kg/m2 38.6 k g/m2 MEDENT ([facility] Respiratory rate 18 /min 18 /min eCW1 ([facility]) Body temperature 97.2 [degF] 97.2 [degF] eCW1 ( [facility]) Systolic blood pressure 118 mm[Hg] 118 mm[Hg] e CW1 ([facility]) Diastolic blood pressure 70 mm[Hg] 70 mm[Hg] eCW1 ([facility]) Heart rate 82 /min 82 /min eCW1 ([facility]) Body weight 309 [lb_av] 309 [lb_av] eCW1 ([facility]) Body height 75 [in_i] 75 [in_i] eCW1 ([facility]) Body mass index (BMI) [Ratio] 38.62 kg/m2 38.62 kg/m2 eCW1 ([facility]) Body weight 257.00 [lb_av] 257.00 [lb_av] MEDEN T ([facility]) Respiratory rate 18 /min 18 /min MEDENT ( [facility]) Diastolic blood pressure 80 mm[Hg] 80 mm[Hg] MEDENT ([facility]) Heart rate 80 /min 80 /min MEDENT ([facility]) Body weight 196.00 [lb_av] 196.00 [lb_av] MEDEN T ([facility]) Body temperature 98.7 [degF] 98.7 [degF] MEDENT ([facility]) Systolic blood pressure 142 mm[Hg] 142 mm[Hg] M EDENT ([facility]) Patient Treatment Plan of Care Planned Activity Planned Date Details Description Data Source (s) Clobetasol Propionate 0.5 MG/ML Topical Solution 12/30/2020 12:00:0 0 AM EDT eCW1 ([facility]) Clobetasol Propionate 0.5 MG/ML Topical Solution 12/30/2020 12:00:0 0 AM EDT eCW1 ([facility]) tizanidine 2 MG Oral Tablet 12/19/2020 12:00:00 AM EDT eCW1 ([facility]) Ergocalciferol [id number] UNT Oral Capsule 12/19/2020 12:00:00 AM EDT eCW1 ([facility]) doxycycline hyclate 100 MG Oral Tablet 12/19/2020 12:00:00 AM EDT eCW1 ([facility]) Clobetasol Propionate 0.5 MG/ML Medicated Shampoo 12/19/2020 12: 00:00 AM EDT eCW1 ([facility]) tizanidine 2 MG Oral Tablet 12/19/2020 12:00:00 AM EDT eCW1 ([facility]) Ergocalciferol [id number] UNT Oral Capsule 12/19/2020 12:00:00 AM EDT eCW1 ([facility]) doxycycline hyclate 100 MG Oral Tablet 12/19/2020 12:00:00 AM EDT eCW1 ([facility]) Clobetasol Propionate 0.5 MG/ML Medicated Shampoo 12/19/2020 12: 00:00 AM EDT eCW1 ([facility])
== END 2021-03-03 23:55 | disposition left against medical advice (07) ==
LOC: M ED 18:22
DX: Z53.21 Procedure and treatment not carried out due to patient leaving prior to being seen by health care provider (principal)

== ENCOUNTER → 2021-03-17 | Outpatient (REF) | payer OTHER ==
[~2021-03-17] MED LIST changes: +CEFD300C41; +CIPR500T39; +CLOB0.057; +DOXY100T; +ERGO500029; +IBUP80TA; +LIDO1ADH10; +METO10TA2; +METR-265
== END ==
LOC: M SFHCPLAZ 15:15
PROVIDERS: ATTEND Nurse Practitioner Adult Health
DX: N39.0 Urinary tract infection, site not specified (principal)

== ENCOUNTER 2021-04-15 18:02 | Emergency (ER) | payer OTHER ==
[~2021-04-15] VITALS: Ht 190.5 cm; Wt 104.5 kg
[~2021-04-15 18:02] MED LIST changes: +CEFD1CAP8; -CEFD300C41; -CIPR500T39; -METR-265
[2021-04-15] MEDS ORDERED: METR-265 (18:24)
[2021-04-15] MEDS ORDERED: CIPR500T39 (18:24)
[2021-04-15] MEDS ORDERED: MORPHINE 2 MG/ML 1ML VIAL (J2270) IV ONE (20:20)
[2021-04-15] MEDS ORDERED: ONDANSETRON 4MG/2ML VIAL IV ONE (20:20)
[2021-04-15 20:43] LABS: BASO % 0.2 % (0.0-1.0); EOS % 0.2 % (0.0-3.0); HEMATOCRIT 45.5 % (42.0-52.0); HEMOGLOBIN 15.5 g/dl (13.5-17.5); LYMPH # 1.4 10^3/uL (1.5-5.0); LYMPH % 10.8 % (24.0-44.0); MEAN CORPUSCULAR HEMOGLOBIN 31.5 pg (27.0-33.0); MEAN CORPUSCULAR HGB CONC 34.1 g/dl (32.0-36.5); MEAN CORPUSCULAR VOLUME 92.5 fl (80.0-96.0); MONO # 0.5 10^3/uL (0.0-0.8); MONO % 3.5 % (2.0-8.0); NEUTROPHILS % 85.1 % (36.0-66.0); PLATELET COUNT, AUTOMATED 273 10^3/uL (150-450); RED BLOOD COUNT 4.92 10^6/uL (4.30-6.10); WHITE BLOOD COUNT 12.9 10^3/uL (4.0-10.0)
[2021-04-15 21:19] LABS: ALBUMIN 4.1 GM/DL (3.2-5.2); ALT/SGPT 51 U/L (12-78); BILIRUBIN,TOTAL 1.2 MG/DL (0.2-1.0); BLOOD UREA NITROGEN 11 MG/DL (7-18); CALCIUM LEVEL 9.4 MG/DL (8.5-10.1); CARBON DIOXIDE LEVEL 27 MEQ/L (21-32); CHLORIDE LEVEL 106 MEQ/L (98-107); CREATININE FOR GFR 0.96 MG/DL (0.70-1.30); GLOMERULAR FILTRATION RATE > 60.0 (>60); GLUCOSE, FASTING 97 MG/DL (70-100); LIPASE 160 U/L (73-393); POTASSIUM SERUM 4.3 MEQ/L (3.5-5.1); SODIUM LEVEL 139 MEQ/L (136-145); TOTAL PROTEIN 8.4 GM/DL (6.4-8.2)
--- NOTE | 2021-04-15 22:16 | REPVR ---
PROCEDURE INFORMATION: Exam: CT Abdomen And Pelvis Without Contrast Exam date and time: 04/15/2021 8:54 PM Age: 35 years old Clinical indication: Other: Llq abd pain, nausea, vomiting TECHNIQUE: Imaging protocol: Computed tomography of the abdomen and pelvis without contrast. Radiation optimization: All CT scans at this facility use at least one of these dose optimization techniques: automated exposure control; mA and/or kV adjustment per patient size (includes targeted exams where dose is matched to clinical indication); or iterative reconstruction. COMPARISON: CT ABD PELVIS W/O CONTRAST 02/09/2021 3:58 PM FINDINGS: Lungs: No suspicious mass or airspace process in the visualized lung bases. Liver: Noncontrast liver shows no obvious lesion. Gallbladder and bile ducts: Gallbladder is present and shows no evidence of gallstone. Pancreas: Noncontrast pancreas shows no obvious mass or adjacent fluid. Spleen: Noncontrast spleen shows no obvious focal deformity. Adrenal glands: Adrenal glands are normal in appearance. Kidneys and ureters: Kidneys show no stone or hydronephrosis. Stomach and bowel: Limited evaluation without enteric or IV contrast. No evidence of small bowel obstruction. No evidence of acute diverticulitis. Appendix: Normal caliber appendix is identified, with no adjacent inflammation. Intraperitoneal space: No pneumoperitoneum. Vasculature: No aortic aneurysm. Lymph nodes: No enlarged lymph nodes. Urinary bladder: Urinary bladder appears normal. Reproductive: No overt enlargement of the prostate gland. Bones/joints: No effacement of normal fat planes in the ischiorectal fossa. Bony structures show no acute fracture or destructive process. Soft tissues: No concerning focal abnormality of the extra-abdominal and pelvic soft tissues. IMPRESSION: No evidence of renal stone or obstructive uropathy. No evidence of acute diverticulitis or other explanation for left lower quadrant pain Electronically signed by: Timbo Aragon On 04/15/2021 22:16:18 PM
[2021-04-15] MEDS ORDERED: ZOFR4TAB16 PO (23:30)
[2021-04-15] MEDS ORDERED: ONDANSETRON 4 MG ORAL DISINTEGRATING TAB PO ONE (23:35)
[2021-04-15 23:39] VITALS: BP 150/92
[2021-04-15] MEDS ORDERED: CIPROFLOXACIN 500MG TABLET PO ONE (23:40)
[2021-04-15] MEDS ORDERED: metroNIDAZOLE (FLAGYL) 500MG TABLET PO ONE (23:40)
== END 2021-04-16 00:05 | disposition home or self-care (01) ==
LOC: M ED 18:02
DX: K52.9 Noninfective gastroenteritis and colitis, unspecified (principal); R11.2 Nausea with vomiting, unspecified; F17.200 Nicotine dependence, unspecified, uncomplicated; Z79.899 Other long term (current) drug therapy; Z88.0 Allergy status to penicillin
CPT/HCPCS: 74176; 80053; 83690; 85025; 96374; 96375; 99284; J2270; J2405; Q0162

== ENCOUNTER → 2021-06-25 | Outpatient (CLI) | payer OTHER ==
[~2021-06-25] MED LIST changes: -CEFD1CAP8; +CEFD300C41; +CIPR500T39; +METR-265
[2021-06-25 14:47] LABS: ALBUMIN 3.8 GM/DL (3.2-5.2); BILIRUBIN,TOTAL 0.9 MG/DL (0.2-1.0); BLOOD UREA NITROGEN 13 MG/DL (7-18); CALCIUM LEVEL 8.9 MG/DL (8.5-10.1); CARBON DIOXIDE LEVEL 31 MEQ/L (21-32); CHLORIDE LEVEL 107 MEQ/L (98-107); CREATININE FOR GFR 1.01 MG/DL (0.70-1.30); GLOMERULAR FILTRATION RATE > 60.0 (>60); GLUCOSE, FASTING 90 MG/DL (70-100); POTASSIUM SERUM 4.2 MEQ/L (3.5-5.1); SODIUM LEVEL 140 MEQ/L (136-145); TOTAL 25(OH) VITAMIN D 13.7 NG/ML (30.0-100.0); TOTAL PROTEIN 7.6 GM/DL (6.4-8.2)
[2021-06-25 14:58] LABS: ALT/SGPT 27 U/L (12-78)
[2021-06-26 21:06] LABS: HSV IgM TYPES 1&2 <0.91 Ratio (0.00-0.90); HSV TYPE II IgG SPECIFIC 2.45 index (0.00-0.90)
== END ==
LOC: M PLALAB 09:55
PROVIDERS: ATTEND Nurse Practitioner Adult Health
DX: Z00.00 Encounter for general adult medical examination without abnormal findings (principal); N48.89 Other specified disorders of penis; E59 Dietary selenium deficiency

== ENCOUNTER → 2021-12-31 | Outpatient (REF) | payer OTHER ==
[2021-12-31 14:50] LABS: APPEARANCE, URINE MANUAL CLEAR (CLEAR); COLOR, URINE MANUAL YELLOW (YELLOW)
[2021-12-31 14:52] LABS: BILIRUBIN, URINE MANUAL NEGATIVE (NEGATIVE); GLUCOSE, URINE (UA) MANUAL NEGATIVE (NEGATIVE); KETONE, URINE MANUAL NEGATIVE (NEGATIVE); LEUKOCYTE ESTERASE, URINE MAN NEGATIVE (NEGATIVE); NITRITE, URINE MANUAL NEGATIVE (NEGATIVE); PROTEIN, URINE MANUAL NEGATIVE (NEGATIVE); SPECIFIC GRAVITY,URINE MANUAL 1.015 (1.002-1.035); UROBILINOGEN, URINE MANUAL NORMAL (NORMAL)
[2021-12-31 14:53] LABS: BLOOD URINE MANUAL POSITIVE (NEGATIVE)
[2021-12-31 15:10] LABS: BACTERIA, URINE SMALL AMOUNT; HYALINE CAST, URINE NONE SEEN /lpf (0-1); MUCUS, URINE SMALL AMOUNT (NEGATIVE); SQUAMOUS EPITHELIAL CELL URINE SMALL AMOUNT /hpf (SMALL AMT)
== END ==
LOC: M SMT 13:03
PROVIDERS: ATTEND Physician Assistant
DX: R30.0 Dysuria (principal)

== ENCOUNTER → 2022-01-23 | Outpatient (CLI) | payer OTHER | LOC: M WHC 08:24 | PROVIDERS: ATTEND Physician Assistant | DX: R30.0 Dysuria (principal); N28.1 Cyst of kidney, acquired; R93.89 Abnormal findings on diagnostic imaging of other specified body structures ==

== ENCOUNTER → 2022-01-30 | Outpatient (REF) | payer OTHER ==
[~2022-01-30] MED LIST changes: +GABA-282 PO; +LEVOTAB10 PO; +MINO100C4 PO; +NICO1DIS12 TOP; +TAMS1CAP17 PO; +TIZA10TA PO
[2022-01-30 12:14] LABS: APPEARANCE, URINE MANUAL HAZY (CLEAR); COLOR, URINE MANUAL DK YELLOW (YELLOW)
[2022-01-30 12:16] LABS: PROTEIN, URINE MANUAL NEGATIVE (NEGATIVE); SPECIFIC GRAVITY,URINE MANUAL 1.015 (1.002-1.035)
[2022-01-30 12:17] LABS: BILIRUBIN, URINE MANUAL NEGATIVE (NEGATIVE); BLOOD URINE MANUAL POSITIVE (NEGATIVE); GLUCOSE, URINE (UA) MANUAL NEGATIVE (NEGATIVE); KETONE, URINE MANUAL NEGATIVE (NEGATIVE); LEUKOCYTE ESTERASE, URINE MAN TRACE (NEGATIVE); NITRITE, URINE MANUAL NEGATIVE (NEGATIVE); UROBILINOGEN, URINE MANUAL 1 MG mg/dl (NORMAL)
[2022-01-30 13:03] LABS: RBC, URINE 20-30 /hpf (0-3); WBC, URINE 20-30 /hpf (0-3)
[2022-01-30 13:04] LABS: BACTERIA, URINE SMALL AMOUNT; HYALINE CAST, URINE NONE SEEN /lpf (0-1); SQUAMOUS EPITHELIAL CELL URINE SMALL AMOUNT /hpf (SMALL AMT)
== END ==
LOC: M SMT 10:24
PROVIDERS: ATTEND Physician Assistant
DX: R39.198 Other difficulties with micturition (principal)

== ENCOUNTER 2022-02-12 09:33 | Day surgery (SDC) | payer OTHER ==
[~2022-02-12] VITALS: Ht 190.5 cm; Wt 99.7 kg
[~2022-02-12 09:33] MED LIST changes: +LIDOCAINE 2% 100MG/5ML SDV (FOR ANES.) As Ordered ONE; +NS 1,000 ML IV ONE; +fentaNYL 100 MCG/2 ML INJECTION As Ordered ONE; +propofoL 500 MG/50 ML VIAL As Ordered ONE
[2022-02-12] MEDS ORDERED: MIDAZOLAM INJ 2MG/2ML VIAL (J2250 PER 1MG) As Ordered ONE (11:16)
[2022-02-12] MEDS ORDERED: propofoL 200 MG/20 ML VIAL As Ordered ONE (11:22)
[2022-02-12 12:10] VITALS: BP 164/89
== END 2022-02-12 12:20 | disposition home or self-care (01) ==
LOC: M OPP 09:33
PROVIDERS: ATTEND Internal Medicine Gastroenterology
DX: K64.8 Other hemorrhoids (principal); K57.30 Diverticulosis of large intestine without perforation or abscess without bleeding; R19.7 Diarrhea, unspecified; K29.70 Gastritis, unspecified, without bleeding; R11.10 Vomiting, unspecified; Z79.2 Long term (current) use of antibiotics; Z79.899 Other long term (current) drug therapy; Z88.0 Allergy status to penicillin; Z86.73 Personal history of transient ischemic attack (TIA), and cerebral infarction without residual deficits; N40.0 Benign prostatic hyperplasia without lower urinary tract symptoms; F12.10 Cannabis abuse, uncomplicated
CPT/HCPCS: 43239; 45378; 88305; J2250; J3010

== ENCOUNTER → 2022-02-18 | Outpatient (REF) | payer OTHER ==
[~2022-02-18] MED LIST changes: -LIDOCAINE 2% 100MG/5ML SDV (FOR ANES.) As Ordered ONE; -NS 1,000 ML IV ONE; -fentaNYL 100 MCG/2 ML INJECTION As Ordered ONE; -propofoL 500 MG/50 ML VIAL As Ordered ONE
[2022-02-18 16:07] LABS: APPEARANCE, URINE MANUAL CLEAR (CLEAR); BILIRUBIN, URINE MANUAL NEGATIVE (NEGATIVE); BLOOD URINE MANUAL TRACE (NEGATIVE); COLOR, URINE MANUAL LT YELLOW (YELLOW); GLUCOSE, URINE (UA) MANUAL NEGATIVE (NEGATIVE); KETONE, URINE MANUAL NEGATIVE (NEGATIVE); LEUKOCYTE ESTERASE, URINE MAN NEGATIVE (NEGATIVE); NITRITE, URINE MANUAL NEGATIVE (NEGATIVE); PROTEIN, URINE MANUAL NEGATIVE (NEGATIVE); UROBILINOGEN, URINE MANUAL NORMAL (NORMAL)
[2022-02-18 16:08] LABS: SPECIFIC GRAVITY,URINE MANUAL 1.021 (1.002-1.035)
[2022-02-18 16:49] LABS: RBC, URINE 0-1 /hpf (0-3); WBC, URINE 0-1 /hpf (0-3)
[2022-02-18 16:50] LABS: BACTERIA, URINE SMALL AMOUNT; HYALINE CAST, URINE NONE SEEN /lpf (0-1); SQUAMOUS EPITHELIAL CELL URINE NONE SEEN /hpf (SMALL AMT)
== END ==
LOC: M SMT 15:05 → M LAB REF 15:05
PROVIDERS: ATTEND Urology
DX: R31.0 Gross hematuria (principal)

== ENCOUNTER → 2022-03-10 | Outpatient (CLI) | payer OTHER ==
[~2022-03-10] MED LIST changes: +ISOVUE-370 76% 100ML VIAL As Ordered ONE
== END ==
LOC: M RAD 16:33
PROVIDERS: ATTEND Urology
DX: R39.89 Other symptoms and signs involving the genitourinary system (principal); N28.1 Cyst of kidney, acquired

== ENCOUNTER → 2022-03-24 | Outpatient (CLI) | payer OTHER ==
[~2022-03-24] MED LIST changes: -ISOVUE-370 76% 100ML VIAL As Ordered ONE
== END ==
LOC: M PLALAB 14:48
PROVIDERS: ATTEND Urology
DX: R39.89 Other symptoms and signs involving the genitourinary system (principal)

== ENCOUNTER → 2022-06-24 | Outpatient (CLI) | payer OTHER ==
[~2022-06-24] MED LIST changes: +ERGO500029 PO; +IBUP80TA PO
== END ==
LOC: M LABSMTC 08:45
PROVIDERS: ATTEND Anesthesiology
DX: Z01.818 Encounter for other preprocedural examination (principal)

== ENCOUNTER → 2022-06-26 | Outpatient (CLI) | payer OTHER ==
[2022-06-26 17:52] LABS: HEMATOCRIT 40.4 % (42.0-52.0); HEMOGLOBIN 13.8 g/dl (13.5-17.5); MEAN CORPUSCULAR HGB CONC 34.2 g/dl (32.0-36.5); MEAN CORPUSCULAR VOLUME 96.7 fl (80.0-96.0); PLATELET COUNT, AUTOMATED 265 10^3/uL (150-450); RED BLOOD COUNT 4.18 10^6/uL (4.30-6.10); WHITE BLOOD COUNT 9.4 10^3/uL (4.0-10.0)
[2022-06-26 18:04] LABS: PROTHROMBIN TIME 13.4 SECONDS (12.5-14.5)
[2022-06-26 18:24] LABS: ALBUMIN 3.5 G/DL (3.2-5.2); ALKALINE PHOSPHATASE 78 U/L (46-116); ALT/SGPT 25 U/L (7.0-40); AST/SGOT 22 U/L (<34); BILIRUBIN,TOTAL 0.7 MG/DL (0.3-1.2); BLOOD UREA NITROGEN 15 MG/DL (9-23); CALCIUM LEVEL 8.5 MG/DL (8.5-10.1); CARBON DIOXIDE LEVEL 31 MMOL/L (20-31); CHLORIDE LEVEL 108 MMOL/L (98-107); CREATININE FOR GFR 0.88 MG/DL (0.70-1.30); GLOMERULAR FILTRATION RATE > 60.0 (>60); GLUCOSE, FASTING 84 MG/DL (60-100); POTASSIUM SERUM 4.1 MMOL/L (3.5-5.1); SODIUM LEVEL 142 MMOL/L (136-145)
== END ==
LOC: M LAB 17:28
PROVIDERS: ATTEND Urology
DX: N40.2 Nodular prostate without lower urinary tract symptoms (principal)

== ENCOUNTER 2022-06-29 09:41 | Day surgery (SDC) | payer OTHER ==
[~2022-06-29] VITALS: Ht 188 cm; Wt 105.0 kg
[2022-06-29] MEDS ORDERED: LR 1,000 ML IV SCH ×2 (10:00→11:40)
[2022-06-29] MEDS ORDERED: fentaNYL 100 MCG/2 ML INJECTION As Ordered ONE (10:16)
[2022-06-29] MEDS ORDERED: MIDAZOLAM INJ 2MG/2ML VIAL As Ordered ONE (10:16)
[2022-06-29] MEDS ORDERED: LIDOCAINE 2% 100MG/5ML SDV (FOR ANES.) As Ordered ONE (10:16)
[2022-06-29] MEDS ORDERED: propofoL 200 MG/20 ML VIAL As Ordered ONE (10:16)
[2022-06-29] MEDS ORDERED: GENTAMICIN 100 MG in IV 1 EA IV ONE (10:20)
[2022-06-29] MEDS ORDERED: CIPR-249 PO (11:37)
[2022-06-29] MEDS ORDERED: oxyCODONE 5MG TAB PO PRN (11:40)
[2022-06-29] MEDS ORDERED: fentaNYL 100 MCG/2 ML INJECTION IV PRN (11:40)
[2022-06-29] MEDS ORDERED: ONDANSETRON 4MG 2ML VIAL IV PRN (11:40)
[2022-06-29 12:36] VITALS: BP 123/75
== END 2022-06-29 12:40 | disposition home or self-care (01) ==
LOC: M SDC 09:41
PROVIDERS: ATTEND Urology
DX: N40.2 Nodular prostate without lower urinary tract symptoms (principal); K21.9 Gastro-esophageal reflux disease without esophagitis; Z79.899 Other long term (current) drug therapy; K57.92 Diverticulitis of intestine, part unspecified, without perforation or abscess without bleeding; F17.210 Nicotine dependence, cigarettes, uncomplicated; Z88.0 Allergy status to penicillin
CPT/HCPCS: 55700; 76872; G0416; J2250; J3010

== ENCOUNTER → 2022-07-01 | Outpatient (CLI) | payer OTHER ==
[~2022-07-01] MED LIST changes: +ISOVUE-370 76% 100ML VIAL As Ordered ONE
== END ==
LOC: M RAD 17:02
PROVIDERS: ATTEND Nurse Practitioner Adult Health
DX: R22.2 Localized swelling, mass and lump, trunk (principal); J98.11 Atelectasis; J98.4 Other disorders of lung; I51.7 Cardiomegaly; M47.814 Spondylosis without myelopathy or radiculopathy, thoracic region

== ENCOUNTER → 2023-06-23 | Outpatient (REF) | payer OTHER ==
[~2023-06-23] MED LIST changes: +CEFD1CAP9; -CEFD300C41; -ISOVUE-370 76% 100ML VIAL As Ordered ONE
[2023-06-23 14:52] LABS: Trichomonas vaginalis (AMP) NOT DETECTED (NEGATIVE)
[2023-06-23 15:15] LABS: GC DNA AMPLIFICATION NEGATIVE (NEGATIVE)
== END ==
LOC: M SFHCPLAZ 13:06
PROVIDERS: ATTEND Nurse Practitioner Adult Health
DX: Z20.2 Contact with and (suspected) exposure to infections with a predominantly sexual mode of transmission (principal)

== ENCOUNTER → 2023-10-26 | Outpatient (REF) | payer OTHER ==
[2023-10-26 12:39] LABS: APPEARANCE, URINE CLEAR (CLEAR); BACTERIA, URINE AUTO NEGATIVE (NEGATIVE); BILIRUBIN, URINE AUTO NEGATIVE (NEGATIVE); BLOOD, URINE BLOOD 2+ (NEGATIVE); COLOR, URINE YELLOW (YELLOW); GLUCOSE, URINE (UA) AUTO NEGATIVE (NEGATIVE); KETONE, URINE AUTO NEGATIVE (NEGATIVE); LEUKOCYTE ESTERASE, URINE AUTO NEGATIVE (NEGATIVE); MUCUS, URINE SMALL (NEGATIVE); NITRITE, URINE AUTO NEGATIVE (NEGATIVE); PROTEIN, URINE AUTO NEGATIVE (NEGATIVE); RBC, URINE AUTO 18 /HPF (0-3); SPECIFIC GRAVITY URINE AUTO 1.025 (1.002-1.035); SQUAMOUS EPITHELIAL CELL UR AU 0 /HPF (0-6); UROBILINOGEN, URINE AUTO 0.2 mg/dL (0.0-2.0); WBC, URINE AUTO 1 /HPF (0-3)
[2023-10-26 14:06] LABS: Trichomonas vaginalis (AMP) NOT DETECTED (NEGATIVE)
[2023-10-26 14:30] LABS: GC DNA AMPLIFICATION NEGATIVE (NEGATIVE)
== END ==
LOC: M SMT 12:20
PROVIDERS: ATTEND Urology
DX: N50.82 Scrotal pain (principal)

== ENCOUNTER → 2023-11-16 | Outpatient (CLI) | payer OTHER | LOC: M RAD 15:17 | PROVIDERS: ATTEND Urology | DX: N50.3 Cyst of epididymis (principal) ==